=== PATIENT | female | born 1990 | race Caucasian/White ===

== ENCOUNTER 2019-04-07 08:30 | Outpatient (RCR) | payer OTHER, SELFPAY ==
--- NOTE | 2019-03-29 13:53 | PTOPEVAL ---
INITIAL PHYSICAL THERAPY EVALUATION and PLAN OF CARE Thank you for referring Pooja to [facility]. She will be seen in PT one time to once every two weeks x 6 weeks. Please review, sign, date and return this plan of care PASCUAL. I agree with and certify that the following plan of care is medically necessary. Referring Physician Date Admitting Provider: Attending Provider: Lazaro Recinos MD Referring Provider: *PT Outpatient Evaluation Start: 03/29/19 12:42 Freq: Status: Active Protocol: Document 03/29/19 12:40 CALDERON (Rec: 03/29/19 13:53 CALDERON [email or web address]) Therapy Assessment Status Assessment Status Assessment Status Evaluation Outpatient Past Medical History Neurological History Hx Neurological Disorders No Significant History Cardiovascular History Hx Cardiac Disorders No Significant History Respiratory History Hx Respiratory Disorders No Significant History Gastrointestinal History Hx Gastrointestinal Disorders No Significant History Genitourinary History Hx Genitourinary Disorders No Significant History Musculoskeletal History Hx Other Musculoskeletal Disorders Yes: some recent L sided cervical soreness,back soreness from epidurals,L SIJ dy Endocrine History Hx Endocrine Disorders No Significant History Reproductive History Hx Other Reproductive Disorders Yes: 2 C Sections Evaluation Information Problem Diagnosis Separation of muscle ( nontraumatic) Onset 2015 Subjective Information 1st baby - Jan 12, 2016 - C Query Text:As Reported By Patient/ section - due to baby's Family decrease heart rate - 8# 2oz 2nd baby - planned C section 11/10/2018 - 6# 11oz - Pooja went into labor - C section later that day Feels overall weakness in trunk, back doesn't feel as strong, increase difficulty with prolonged carrying of children - currently son weighs 27# and daughter 16# Some residual back pain from epidural sites Wants to go back to strengthening ex/ working out - afraid to do so without being looked at, wanting further imput in regards to initial stages of strengthening Prior Level of Function Activity Level (Last 3 Months) Occupation
--- NOTE | 2019-04-15 08:09 | PCPTNOTE ---
PHYSICAL THERAPY DISCHARGE NOTE Admitting Provider: Attending Provider: Lazaro Recinos MD Patient:Rosy Arboleda Date of :1990 I spoke with Pooja 04/14/2019, she was still having occasionally L SIJ dicomfort but was doing well with core/abdominal strengthening exercises. I reviewed with her how to correct her SIJ dysfunction with muscle corrective techniques which she is familiar with. In addition, we reviewed how she is to progress her core strengthening exercises. 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 She is ready for discharge from PT to [facility]. The goals have been achieved. Thank you for referring Pooja to [facility]. Please review, sign, date and return this discharge summary PASCUAL. I have been updated about Pooja's current status and I agree with discharge from the above service at this time. Referring Physician Date
== END 2019-04-19 08:27 | disposition home or self-care (01) ==
LOC: ANHPT 08:30
PROVIDERS: PCP Family Medicine; Visit Provider Obstetrics & Gynecology
DX: M62.08 Separation of muscle (nontraumatic), other site (principal)
CPT/HCPCS: 97140; 97161

== ENCOUNTER 2019-07-29 17:35 | Outpatient (CLI) | payer OTHER, SELFPAY ==
--- NOTE | ~2019-07-29 | XR_ITS ---
EXAMINATION: XR foot LT min 3V DATE: 07/29/2019 17:51 INDICATION: Left great toe pain. TECHNIQUE: 4 views of left foot were obtained. COMPARISON: None. FINDINGS: Bone alignment is normal. No fracture. Joint spaces are well maintained. IMPRESSION: 1. Normal left foot. Reviewed, dictated and finalized at location A. IMPRESSION: 1. Normal left foot.
== END 2019-07-29 17:36 | disposition home or self-care (01) ==
LOC: ANHIMG 17:37
PROVIDERS: PCP Family Medicine; Visit Provider Family Medicine
DX: M79.675 Pain in left toe(s) (principal)
CPT/HCPCS: 73630

== ENCOUNTER 2020-05-28 09:49 | Outpatient (CLI) | payer BC, SELFPAY ==
--- NOTE | ~2020-05-28 | XR_ITS ---
EXAMINATION:XR_[id number] DATE: 05/28/2020 10:07 INDICATION: Neck pain TECHNIQUE: AP, lateral, and odontoid views of the cervical spine are provided. COMPARISON: None FINDINGS: Alignment is normal. The odontoid is intact. No fracture is identified. Vertebral body heig hts and disk spaces are normal. Prevertebral soft tissues are normal. IMPRESSION: 1. No acute osseous abnormality. Reviewed, dictated and finalized at location B.
== END 2020-05-28 09:50 | disposition home or self-care (01) ==
PROVIDERS: PCP Internal Medicine; Visit Provider Nurse Practitioner
DX: M54.2 Cervicalgia (principal)
CPT/HCPCS: 72040

== ENCOUNTER 2020-07-12 08:00 | Outpatient (RCR) | payer BC, SELFPAY ==
--- NOTE | 2020-06-21 16:58 | PTOPEVAL ---
INITIAL PHYSICAL THERAPY EVALUATION and PLAN OF CARE Thank you for referring Rosy Arboleda to [facility].? Pooja is scheduled to be seen for physical therapy? 1-2x/week for up to 6 weeks. Please review, sign, date and return this plan of care PASCUAL. I agree with and certify that the following plan of care is medically necessary. Referring Physician Date Admitting Provider: Attending Provider: Fortino Salazar APRN Referring Provider: MOMO Outpatient Evaluation Start: 06/21/20 12:39 Freq: Status: Active Protocol: Document 06/21/20 12:35 CALDERON (Rec: 06/21/20 14:02 CALDERON [email or web address]) Therapy Assessment Status Assessment Status Assessment Status Evaluation Outpatient Past Medical History Past Medical History Source of Past Medical History Recalled from Previous Visit, Confirmed with Patient/Family Neurological History Hx Neurological Disorders No Significant History Cardiovascular History Hx Cardiac Disorders No Significant History Respiratory History Hx Respiratory Disorders No Significant History Gastrointestinal History Hx Gastrointestinal Disorders No Significant History Genitourinary History Hx Genitourinary Disorders No Significant History Musculoskeletal History Hx Other Musculoskeletal Disorders Yes: some recent L sided cervical soreness,back soreness from epidurals,L SIJ dy Endocrine History Hx Endocrine Disorders No Significant History Reproductive History Hx Other Reproductive Disorders Yes: 2 C Sections Evaluation Information Problem Diagnosis cervicalgia Onset first episode 2015-went away, came back a little 2019, returned few months ag Additional Evaluation Detail first 2 episodes corresponded to of children Subjective Information Pooja noticed few months ago Query Text:As Reported By Patient/ began to have some neck pain - Family centrally into bilat trapezius - occasional into shoulders - had L hand weakness - more 4th,5th fingers. Neck pain went away - but L hand weakness still present. Notices most with snapping cloth diapers, fine motor activities with L UE. L UE is arm that she carries children - mainly daughter - 25 lbs. Still playing volleyball - no problems with that. Will not
--- NOTE | 2020-10-09 08:25 | PCPTNOTE ---
PHYSICAL THERAPY DISCHARGE SUMMARY Admitting Provider: Attending Provider: Fortino Salazar APRN Patient:Rosy Arboleda Date of :1990 Pooja has not returned for any further treatments since 07/12/2020, therefore she will be discharged at this time. Pooja?s initial visit was on 06/21/2020 12:30 and she had a total of 2 visits. Follow up phone calls were made 07/19/20 and 08/07/20 - Pooja was still doing well. The goals have been met. Thank you for referring Pooja to [facility]. Please review, sign, date and return this discharge summary PASCUAL. I have been updated about Pooja's current status and I agree with discharge from the above service at this time. Referring Physician Date
== END 2020-09-19 23:59 | disposition home or self-care (01) ==
LOC: ANHPT 08:00
PROVIDERS: PCP Internal Medicine; Visit Provider Nurse Practitioner
DX: M54.2 Cervicalgia (principal); R20.0 Anesthesia of skin
CPT/HCPCS: 97110; 97140; 97161; 97162

== ENCOUNTER 2022-05-19 09:00 | Emergency (ER) | payer OTHER, SELFPAY ==
--- NOTE | ~2022-05-19 | US_ITS ---
EXAMINATION: US OB <=14 wk fetus w TV DATE: 05/19/2022 13:48 INDICATION: Vaginal bleeding during first trimester TECHNIQUE: Real-time pelvic transabdominal and transvaginal ultrasound was performed. COMPARISON: None. FINDINGS: The uterus measures 9.2 x 4.8 x 4.1 cm. A 3 mm fluid collection is present in the endometri al canal. There is a probable 4 mm nabothian cyst of the cervix. The right ovary measures 3.9 x 3.1 x 2.8 cm. There is a 2.9 cm cystic area of the right ovary with peripheral vascularity, likely a corpu s luteum. The left ovary measures 3.5 x 2.5 x 2.2 cm. There is normal vascular flow in the ovaries. T here is no free fluid in the pelvis. IMPRESSION: 1. of unknown location. Although no intrauterine gestational sac is seen, this may be due t o early gestation. If the patient is clinically stable, recommend followup with serial beta-hCG and u ltrasound. Reviewed, dictated and finalized at location B. IMPRESSION: 1. of unknown location. Although no intrauterine gestational sac is s een, this may be due to early gestation. If the patient is clinically stable, r ecommend followup with serial beta-hCG and ultrasound.
[2022-05-19 09:31] LABS: Basophils Percent Auto 0.3 % (0.2-1.2); Eosinophils Percent Auto 0.2 % (0-4.4); Hematocrit 42.8 % (37.0-47.0); Hemoglobin 14.5 g/dL (12.0-15.0); Immature Granulocyte Absolute 0.03 K/mm3 (0.00-0.031); Immature Granulocyte Percent A 0.3 % (0-0.5); Immature Platelet Fraction Pct 7.8 % (0.9-11.2); Lymphocytes Absolute Auto 1.14 K/mm3 (0.9-3.2); Lymphocytes Percent Auto 12.2 % (18.3-44.2); Mean Corpuscular HGB Conc 33.9 g/dl (32-36); Mean Corpuscular Hemoglobin 29.2 pg (26-34); Mean Corpuscular Volume 86.1 fl (80-100); Mean Platelet Volume 11.3 fl (7.4-10.4); Monocytes Absolute Auto 0.5 K/mm3 (0.1-0.6); Neutrophils Absolute Auto 7.7 K/mm3 (1.3-6.7); Platelet Count Result 204 k/mm3 (150-375); Red Blood Count 4.97 M/mm3 (4.2-5.4); Red Cell Distribution Width 12.1 % (11.5-14.5); White Blood Count 9.3 K/mm3 (4.5-10.0)
[2022-05-19 09:40] VITALS: BP 119/82; PULSE 101; RESP 18; TEMP 36.8; O2SAT 99
[2022-05-19 11:28] VITALS: BP 113/90; PULSE 109; RESP 18; O2SAT 100
[2022-05-19] MEDS: RHO(D) IMMUNE GLOBULIN 300 MCG/2 ML SYRINGE IM (12:29)
[2022-05-19 12:31] VITALS: BP 111/93; PULSE 95; RESP 18; TEMP 37.1; O2SAT 100
--- NOTE | 2022-05-19 13:07 | ED.PREGNANCY ---
HPI - General Chief complaint: Vaginal Bleeding Stated complaint: vaginal bleeding, 6 weeks Time Seen by Provider: 05/19/22 11:20 Source: patient, RN notes reviewed and old records reviewed Mode of arrival: ambulatory Limitations: no limitations History of Present Illness HPI Narrative: This is a 31 year old female approximately 6 week GA who presents for evaluation of vaginal bleeding. She developed brown discharge on Thursday but she reports it was only when she wipes. This morning she has noticed worsening bleeding. She is passing small clots. She only reports minimal cramping. She denies nausea, vomiting, or dizziness. She called her OBGYN Dr. Recinos who recommended that patient come to ER. She is scheduled for her first US later this week. She also reports that she is Onegative Related Data Home Medications Medication Instructions Recorded Confirmed elderberry fruit 200 mg capsule mg PO 01/31/21 03/18/22 Allergies Allergy/AdvReac Type Severity Reaction Status Date / Time No Known Allergies Allergy Verified 05/19/22 11:31 Review of Systems Review of Systems: All systems reviewed & are unremarkable except as noted in HPI and below Constitutional: Constitutional: Denies weakness Cardiovascular: Cardiovascular: Denies syncope, Denies rapid heart rate, Denies irregular heart rhythm, Denies leg edema and Denies dyspnea Respiratory: Respiratory: Denies chest congestion, Denies hemoptysis, Denies excessive phlegm production and Denies dyspnea Gastrointestinal: Gastrointestinal: Denies abdominal pain, Denies hematochezia, Denies diarrhea and Denies vomiting Genitourinary: Genitourinary: Reports abnormal vaginal bleeding, Denies hematuria and Denies dysuria Musculoskeletal: Musculoskeletal: Denies joint swelling, Denies loss of height and Denies muscle weakness Neurologic: Denies syncope, Denies focal weakness and Denies weakness PMFSH Past Medical History Medical History Anxiety Contact dermatitis History of COVID-19 Recent surgical procedure on lower extremity varicose vein surgery Surgical History Surgical History deliv NOS-unsp x2 Family History Family History Grandparent Family history of hypercholesterolemia Hypertension Family history of malignant neoplasm of breast in first degree relative Grandparent Hypertension Grandparent Heart problem Social History Social History Smoking status: Never smoker Second hand tobacco smoke exposure: No Alcohol intake: current Alcohol use details: Social Substance use: never Substance use type: does not use Lack of Transportation: No Lack of Food: Never True Current Housing: I Have Housing Concerned About Future Housing: No Difficulty Paying Gas/Electric Bills: No Difficulty Paying for Meds: No Currently Unemployed: No Education: Associate Degree Difficulty w/ Childcare or Family Care: No Living arrangements: with family Occupation/Education: occupation Additional occupation/education comments: 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 Gender identity (if verbalized by the patient): Female Sexual Orientation (if Verbalized by the Patient): Straight or Heterosexual Exam Const: General: no acute distress and alert Nutritional Appearance: well nourished Orientation/consciousness: patient oriented x3 HENMT: Head: normal to inspection Eyes: EOM: EOMs intact bilaterally Resp: Effort & Inspection: normal respiratory effort Auscultation: clear to auscultation bilaterally Cardio: Rate: regular rate Rhythm: regular rhythm Heart sounds: no murmurs GI: GI Palp: Yes Soft to palpation, No Tenderness to palpation present (GI), No Guarding due to palpation prese
[2022-05-19 15:37] VITALS: RESP 18
== END 2022-05-19 15:37 | disposition home or self-care (01) ==
PROVIDERS: Emergency Provider General Practice; PCP Internal Medicine
DX: O20.9 Hemorrhage in early pregnancy, unspecified (principal); Z86.16 Personal history of COVID-19; Z3A.01 Less than 8 weeks gestation of pregnancy
CPT/HCPCS: 36415; 76801; 76817; 84702; 85025; 85055; 85461; 86850; 86900; 86901; 90384; 96372; 99284; J2790

== ENCOUNTER 2022-05-21 07:09 | Outpatient (CLI) | payer OTHER, SELFPAY | END 2022-05-21 07:10 | disposition home or self-care (01) | PROVIDERS: PCP Internal Medicine; Visit Provider General Practice | DX: O20.9 Hemorrhage in early pregnancy, unspecified (principal); Z3A.00 Weeks of gestation of pregnancy not specified | CPT/HCPCS: 36415; 84702 ==

== ENCOUNTER 2022-05-23 07:20 | Outpatient (CLI) | payer OTHER, SELFPAY ==
[2022-05-23 08:08] LABS: Beta HCG Quantitative 145.44 mIU/ML
== END 2022-05-23 07:21 | disposition home or self-care (01) ==
LOC: ANHLAB 07:21
PROVIDERS: PCP Internal Medicine; Visit Provider Obstetrics & Gynecology
DX: O03.9 Complete or unspecified spontaneous abortion without complication (principal); Z3A.00 Weeks of gestation of pregnancy not specified
CPT/HCPCS: 36415; 84702

== ENCOUNTER 2022-06-09 08:49 | Outpatient (CLI) | payer OTHER, SELFPAY ==
[2022-06-09 10:01] LABS: Beta HCG Quantitative < 2.39 mIU/ML
== END 2022-06-09 08:50 | disposition home or self-care (01) ==
LOC: ANHLAB 08:50
PROVIDERS: PCP Family Medicine; Visit Provider Obstetrics & Gynecology
DX: O03.9 Complete or unspecified spontaneous abortion without complication (principal); Z3A.00 Weeks of gestation of pregnancy not specified
CPT/HCPCS: 36415; 84702

== ENCOUNTER 2022-08-11 15:03 | Outpatient (CLI) | payer OTHER, SELFPAY ==
[2022-08-16 06:04] LABS: Progesterone 18.8 ng/mL (***)
== END 2022-08-11 15:04 | disposition home or self-care (01) ==
LOC: ANHLAB 15:05
PROVIDERS: PCP Family Medicine; Visit Provider Obstetrics & Gynecology
DX: O09.299 Supervision of pregnancy with other poor reproductive or obstetric history, unspecified trimester (principal); Z3A.00 Weeks of gestation of pregnancy not specified
CPT/HCPCS: 36415; 84144; 84702

== ENCOUNTER 2022-08-13 07:46 | Outpatient (CLI) | payer OTHER, SELFPAY | END 2022-08-13 07:47 | disposition home or self-care (01) | PROVIDERS: PCP Family Medicine; Visit Provider Obstetrics & Gynecology | DX: O09.299 Supervision of pregnancy with other poor reproductive or obstetric history, unspecified trimester (principal); Z3A.00 Weeks of gestation of pregnancy not specified | CPT/HCPCS: 36415; 84702 ==

== ENCOUNTER 2022-08-21 14:39 | Outpatient (CLI) | payer OTHER, SELFPAY ==
--- NOTE | ~2022-08-21 | US_ITS ---
Pelvic ultrasound. Clinical History: First trimester , inconclusive viability Technique: Realtime transabdominal and transvaginal scanning of the pelvis was performed. Color flow Doppler and Doppler spectral analysis were performed. Findings: The uterus is anteverted, and contains an intrauterine gestation. Average sac diameter of 1 .3 cm corresponds to an estimated gestational age of 6 weeks 1 day. Yolk sac is present. No clearly d elineated pole identified. The right ovary measures 2.4 x 2.7 x 1.9 cm. No significant right ovarian or adnexal mass is seen. The left ovary measures 4.0 x 2.7 x 3.6 cm. No significant left ovarian or adnexal mass is seen. There is no evidence of free fluid in the cul de sac. Impression: Intrauterine gestational sac with estimated gestational age of 6 weeks 1 day by average sac diameter. Yolk sac present without visible pole. Findings could reflect blighted ovum versus early umer l . Correlate clinically. Continued follow-up with serial beta hCG, and repeat ultrasound as warranted, is advised. Reviewed, dictated and finalized at location M. Impression: Intrauterine gestational sac with estimated gestational age of 6 weeks 1 day by average sac diameter. Yolk sac present without visible pole. Findings co uld reflect blighted ovum versus early normal . Correlate clinically. Continued follow-up with serial beta hCG, and repeat ultrasound as warranted, i s advised.
== END 2022-08-21 14:40 | disposition home or self-care (01) ==
PROVIDERS: PCP Family Medicine; Visit Provider Obstetrics & Gynecology
DX: O36.80X0 Pregnancy with inconclusive fetal viability, not applicable or unspecified (principal); Z3A.00 Weeks of gestation of pregnancy not specified
CPT/HCPCS: 76801; 76817

== ENCOUNTER 2022-08-26 09:34 | Outpatient (CLI) | payer OTHER, SELFPAY | END 2022-08-26 09:35 | disposition home or self-care (01) | PROVIDERS: PCP Family Medicine; Visit Provider Obstetrics & Gynecology | DX: O09.299 Supervision of pregnancy with other poor reproductive or obstetric history, unspecified trimester (principal); Z3A.00 Weeks of gestation of pregnancy not specified | CPT/HCPCS: 36415; 84702 ==

== ENCOUNTER 2022-08-29 15:07 | Outpatient (CLI) | payer OTHER, SELFPAY ==
--- NOTE | ~2022-08-29 | US_ITS ---
EXAMINATION: US OB <= 14 weeks fetus DATE: 08/29/2022 15:55 INDICATION: Abnormal ultrasound finding on ultrasound. TECHNIQUE: Real-time transabdominal and transvaginal pelvic ultrasound was performed. COMPARISON: Ultrasound 08/21/2022 FINDINGS: TRANSABDOMINAL ULTRASOUND: The uterus measures 8.5 x 5.2 x 5.9 cm. TRANSVAGINAL ULTRASOUND: There is an intrauterine gestational sac. A yolk sac is identified. The fet al crown rump length measures 11 mm, which correlates with an estimated gestational age of 7 weeks an d 1 day(s) (+/-) 5 day(s). heart motion is identified measuring 112 beats per minute (bpm) by M -mode Doppler. The right ovary measures 1.6 x 3.0 x 1.7 cm. The left ovary measures 2.5 x 3.2 x 2.9 c m. There is no free fluid in the pelvis. IMPRESSION: 1. Single living intrauterine gestation with estimated date of delivery of 04/16/2023. Reviewed, dictated and finalized at location E. IMPRESSION: 1. Single living intrauterine gestation with estimated date of delivery of 03/20.
== END 2022-08-29 15:08 | disposition home or self-care (01) ==
PROVIDERS: PCP Family Medicine; Visit Provider Obstetrics & Gynecology
DX: O28.3 Abnormal ultrasonic finding on antenatal screening of mother (principal); Z3A.00 Weeks of gestation of pregnancy not specified
CPT/HCPCS: 76801

== ENCOUNTER 2022-09-10 12:18 | Outpatient (CLI) | payer OTHER, SELFPAY ==
--- NOTE | ~2022-09-10 | US_ITS ---
Pelvic ultrasound. Clinical History: First trimester , antepartum hemorrhage Technique: Realtime transabdominal and transvaginal scanning of the pelvis was performed. Color flow Doppler and Doppler spectral analysis were performed. Findings: The uterus is anteverted, and contains an intrauterine gestation. heart rate is 187 b pm. [place]-rump length of 1.9 cm corresponds to an estimated gestational age of 8 weeks 3 days. Possib le minimal subchronic hemorrhage. The right ovary is not visualized. No significant right ovarian or adnexal mass is seen. The left ovary measures 3.6 x 2.3 cm. No significant left ovarian or adnexal mass is seen. There is no evidence of free fluid in the cul de sac. Impression: Live intrauterine gestation with estimated gestational age of 8 weeks 3 days. heart rate is 187 bpm. Probable minimal subchorionic hemorrhage. Reviewed, dictated and finalized at [facility]. Impression: Live intrauterine gestation with estimated gestational age of 8 weeks 3 days. F etal heart rate is 187 bpm. Probable minimal subchorionic hemorrhage.
== END 2022-09-10 12:19 | disposition home or self-care (01) ==
PROVIDERS: PCP Family Medicine; Visit Provider Obstetrics & Gynecology
DX: O46.90 Antepartum hemorrhage, unspecified, unspecified trimester (principal); Z3A.08 8 weeks gestation of pregnancy
CPT/HCPCS: 36415; 76801; 85461; 86850; 86900; 86901; 90384; J2790

== ENCOUNTER 2022-09-24 09:11 | Outpatient (CLI) | payer OTHER, SELFPAY ==
--- NOTE | ~2022-09-24 | US_ITS ---
Pelvic ultrasound. Clinical History: Intraparenchymal hemorrhage, first trimester Technique: Realtime transabdominal and transvaginal scanning of the pelvis was performed. Color flow Doppler and Doppler spectral analysis were performed. Findings: The uterus is anteverted, and contains an intrauterine gestation. No cardiac activity seen. [place]-rump length of 1.9 cm corresponds to an estimated gestational age of 8 weeks 3 days.. Neither ovary seen. No adnexal mass seen. There is no evidence of free fluid in the cul de sac. Impression: Intrauterine gestation with estimated gestational age of 8 weeks 3 days, but no cardiac activity. Thi s is compatible with demise/missed . Reviewed, dictated and finalized at location M. Impression: Intrauterine gestation with estimated gestational age of 8 weeks 3 days, but no cardiac activity. This is compatible with demise/missed .
== END 2022-09-24 09:12 | disposition home or self-care (01) ==
PROVIDERS: PCP Family Medicine; Visit Provider Obstetrics & Gynecology
DX: O46.91 Antepartum hemorrhage, unspecified, first trimester (principal); Z3A.08 8 weeks gestation of pregnancy
CPT/HCPCS: 76801

== ENCOUNTER 2022-09-25 12:55 | Outpatient (CLI) | payer OTHER, SELFPAY ==
[2022-09-25 13:33] LABS: Hemoglobin A1C 4.7 % (<5.7)
[2022-09-25 13:41] LABS: Alanine Aminotransferase 18 U/L (6-35); Albumin Level 4.8 g/dL (3.5-5.1); Alkaline Phosphatase 57 U/L (38-126); Anion Gap 9 mmol/L (8-16); Aspartate Amino Transferase 24 U/L (14-36); Bilirubin,Total 0.6 mg/dL (0.2-1.3); Blood Urea Nitrogen 10 mg/dL (7-17); Calcium 9.4 mg/dL (8.4-10.2); Carbon Dioxide 27 mmol/L (22-30); Chloride 103 mmol/L (98-107); Estimated Glomerular Filt Rate > 60; Glucose 105 mg/dL (65-110); Potassium 3.9 mmol/L (3.4-5.0); Sodium 139 mmol/L (137-145)
[2022-10-01 15:16] LABS: Anti Cardio Antibody IgM <2.0 MPL-U/mL (<20.0); Anti Cardiolipin Antibody IgA <2.0 APL-U/mL (<20.0); Anti Cardiolipin Antibody IgG <2.0 GPL-U/mL (<20.0)
== END 2022-09-25 12:56 | disposition home or self-care (01) ==
LOC: ANHLAB 12:56
PROVIDERS: PCP Family Medicine; Visit Provider Obstetrics & Gynecology
DX: N96 Recurrent pregnancy loss (principal)
CPT/HCPCS: 36415; 80053; 83036; 84443; 86038; 86147; 86850; 86880; 86900; 86901; 86902

== ENCOUNTER 2022-09-26 15:07 | Emergency (ER) | payer OTHER, SELFPAY ==
--- NOTE | ~2022-09-26 | US_ITS ---
EXAMINATION: US OB <=14 wk fetus w TV INDICATION: bleeding, demise 8 weeks TECHNIQUE: Sonography of the pelvis was performed by transabdominal and transvaginal techniques. COMPARISON: None. RESULT: Uterus: 11.9 x 5.4 x 5.5 cm. Anteverted and retroflexed. Homogenous myometrium. Septate uterus. Endo metrial stripe measures 18 mm. 1.4 cm hyperechoic material at the cervix, without flow. 4 mm [place] in the endometrial tissues at the uterine fundus, possible calcification or focus of hemorrhage. Intrauterine gestational sac: Not seen. Right ovary: 2.2 x 1.2 x 2.3 cm. Vascular flow is present. No adnexal mass. Left ovary: 3.0 x 2.4 x 2.3 cm. Vascular flow is present. No adnexal mass. 1.8 cm simple cyst. Pelvis free fluid: None. IMPRESSION: No intrauterine gestational sac or pole. Hyperechoic material in the endocervical canal may represent clot, retained products, or polypoid mat erial. Recommend short-term sonographic follow-up to ensure resolution. Septate uterus. Reviewed, dictated and finalized at location K. IMPRESSION: No intrauterine gestational sac or pole. Hyperechoic material in the endocervical canal may represent clot, retained pro ducts, or polypoid material. Recommend short-term sonographic follow-up to ensu re resolution. Septate uterus.
[2022-09-26 15:15] VITALS: BP 116/81; PULSE 93; RESP 20; TEMP 36.6; O2SAT 100
[2022-09-26 15:37] LABS: Basophils Percent Auto 0.3 % (0.2-1.2); Eosinophils Absolute Auto 0.1 K/mm3 (0-0.3); Eosinophils Percent Auto 0.6 % (0-4.4); Hematocrit 38.1 % (37.0-47.0); Immature Granulocyte Absolute 0.07 K/mm3 (0.00-0.031); Immature Granulocyte Percent A 0.6 % (0-0.5); Lymphocytes Absolute Auto 1.45 K/mm3 (0.9-3.2); Lymphocytes Percent Auto 11.5 % (18.3-44.2); Mean Corpuscular HGB Conc 34.1 g/dl (32-36); Mean Platelet Volume 10.5 fl (7.4-10.4); Monocytes Absolute Auto 0.5 K/mm3 (0.1-0.6); Neutrophils Absolute Auto 10.5 K/mm3 (1.3-6.7); Platelet Count Result 234 k/mm3 (150-375); Red Blood Count 4.48 M/mm3 (4.2-5.4); Red Cell Distribution Width 12.8 % (11.5-14.5); White Blood Count 12.7 K/mm3 (4.5-10.0)
[2022-09-26 16:45] VITALS: BP 111/80; PULSE 88; RESP 16; TEMP 36.7; O2SAT 100
[2022-09-26 17:01] VITALS: BP 121/78; O2SAT 100
[2022-09-26] MEDS: SODIUM CHLORIDE 0.9% IV 1,000 ML 999 ML IV CONT (17:15)
--- NOTE | 2022-09-26 17:28 | ED.PREGNANCY ---
HPI - General Chief complaint: Vaginal Bleeding Stated complaint: VAGINAL BLEEDING, miscarry Time Seen by Provider: 09/26/22 17:05 Source: patient Mode of arrival: ambulatory Limitations: no limitations History of Present Illness HPI Narrative: A 31-year-old , about 11 weeks that presents to the emergency department for vaginal bleeding. Reports she has been having spotting the last couple of weeks. Earlier this week the bleeding became more heavy. She had an ultrasound 2 days ago which showed demise. She started to have very heavy bleeding yesterday. She thinks she passed the tissue this morning. She has continued today to have heavy bleeding and large blood clots which prompted her to be seen tonight. She did get Rhogam. Her OB is Dr. Rceinos. Denies fever or vomiting. Related Data Allergies Allergy/AdvReac Type Severity Reaction Status Date / Time No Known Allergies Allergy Verified 09/26/22 15:15 Review of Systems Review of Systems: CONSTITUTIONAL: Denies fever GASTROINTESTINAL: Ports pelvic cramping. Denies nausea, vomiting All systems reviewed & are unremarkable except as noted in HPI and below PMFSH Past Medical History Medical History Anxiety Contact dermatitis History of COVID-19 Recent surgical procedure on lower extremity varicose vein surgery Spontaneous miscarriage 05/2022 Surgical History Surgical History deliv NOS-unsp x2 Family History Family History Grandparent Family history of hypercholesterolemia Hypertension Family history of malignant neoplasm of breast in first degree relative Grandparent Hypertension Grandparent Heart problem Social History Social History Smoking status: Never smoker Second hand tobacco smoke exposure: No Alcohol intake: current Alcohol use details: Social Substance use: never Substance use type: does not use Lack of Transportation: No Lack of Food: Never True Current Housing: I Have Housing Concerned About Future Housing: No Difficulty Paying Gas/Electric Bills: No Difficulty Paying for Meds: No Currently Unemployed: No Education: Associate Degree Difficulty w/ Childcare or Family Care: No Living arrangements: with family Occupation/Education: occupation Additional occupation/education comments: 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 Gender identity (if verbalized by the patient): Female Sexual Orientation (if Verbalized by the Patient): Straight or Heterosexual Exam Narrative: GENERAL: Well-appearing, well-nourished, and in no acute distress. HEAD: Normocephalic, atraumatic. EYES: EOMI. CHEST: Clear to auscultation. No respiratory distress. No wheezes rales or rhonchi HEART: Regular rate and rhythm. No murmur heard. Normal peripheral pulses. ABDOMEN: Soft, nontender, nondistended, normal active bowel sounds. EXTREMITIES: Normal range of motion. No edema. SKIN: Warm, dry, no rash. NEURO: No focal deficits. Alert and oriented x3. PSYCH: Normal mood and affect PELVIC: Small amount of blood in the vaginal vault with moderate sized blood clot. Able to be cleared, cervix is open Course Course Emergency Course: Patient and family updated on workup and agree with plan of care Consultations Consultation #1: Spoke with Dr. Recinos about patient and workup who will follow up in clinic. Did recommend a dose of Misoprostol vaginally Date: 09/26/22 Vital Signs Vital signs: Vital Signs Temperature 97.9 F 09/26/22 15:15 Pulse Rate 93 09/26/22 15:15 Respiratory Rate 20 09/26/22 15:15 Blood Pressure 116/81 09/26/22 15:15 Pulse Oximetry 100 09/26/22 15:15 Oxygen Delivery Room Air 09/26/22 15:15 Temperature 98.2 F 09/26/22 18:50 Pulse
[2022-09-26 17:31] VITALS: BP 125/94; PULSE 88; RESP 13; O2SAT 100
[2022-09-26 17:46] VITALS: BP 125/83; PULSE 83; RESP 19; O2SAT 99
[2022-09-26 18:50] VITALS: BP 104/74; PULSE 72; RESP 16; TEMP 36.8; O2SAT 100
== END 2022-09-26 20:10 | disposition home or self-care (01) ==
PROVIDERS: Student in an Organized Health Care Education/Training Program; Emergency Provider Physician Assistant; PCP Family Medicine
DX: O03.9 Complete or unspecified spontaneous abortion without complication (principal)
CPT/HCPCS: 36415; 76801; 76817; 84702; 85025; 85461; 86850; 86880; 86900; 86901; 86902; 96360; 96361; 99284; J7030

== ENCOUNTER 2022-10-01 06:27 | Emergency (ER) | payer OTHER, SELFPAY ==
[2022-10-01] VITALS (25 sets, daily range): BP systolic 94–119; BP diastolic 64–93; PULSE 78–94; RESP 12–29; TEMP 36.6; O2SAT 95–100
--- NOTE | ~2022-10-01 | XR_ITS ---
EXAMINATION: XR chest 2V DATE: 10/01/2022 08:04 INDICATION: Chest pain. TECHNIQUE: Frontal and lateral views of the chest were obtained. COMPARISON: Chest single view 08/13/2011 FINDINGS: There is no pneumonia, pleural effusion, or pneumothorax. The heart size is normal. IMPRESSION: 1. No acute cardiopulmonary disease. Reviewed, dictated and finalized at location A.
--- NOTE | 2022-10-01 06:37 | ECG_ITS ---
Measurements Intervals [place] Rate: 89 P: 61 ME: 151 QRS: 49 QRSD: 93 T: 64 QT: 356 QTc: 433 Interpretive Statements SINUS RHYTHM COMPARED TO ECG 07/25/2018 09:36:26 SINUS RHYTHM NOW PRESENT Electronically Signed On 10-01-2022 15:21:59 CDT by Sylvester Burgess M.D.
[2022-10-01] MEDS: ALPRAZolam (*CRX) 0.5 MG TABLET PO (07:20)
[2022-10-01 07:38] LABS: Basophils Percent Auto 0.7 % (0.2-1.2); Eosinophils Absolute Auto 0.1 K/mm3 (0-0.3); Eosinophils Percent Auto 1.6 % (0-4.4); Hematocrit 35.6 % (37.0-47.0); Hemoglobin 12.1 g/dL (12.0-15.0); Immature Granulocyte Absolute 0.03 K/mm3 (0.00-0.031); Immature Granulocyte Percent A 0.5 % (0-0.5); Lymphocytes Absolute Auto 1.46 K/mm3 (0.9-3.2); Lymphocytes Percent Auto 26.2 % (18.3-44.2); Mean Corpuscular Volume 85.4 fl (80-100); Monocytes Absolute Auto 0.3 K/mm3 (0.1-0.6); Monocytes Percent Auto 4.8 % (2.6-8.5); Neutrophils Absolute Auto 3.7 K/mm3 (1.3-6.7); Neutrophils Percent Auto 66.2 % (45.5-73.1); Platelet Count Result 251 k/mm3 (150-375); Red Blood Count 4.17 M/mm3 (4.2-5.4); Red Cell Distribution Width 12.6 % (11.5-14.5); White Blood Count 5.6 K/mm3 (4.5-10.0)
[2022-10-01 07:47] LABS: INR 0.9; Partial Thromboplastin Time 28.3 SECONDS (22.3-36.8); Prothrombin Time 12.8 Seconds (11.1-14.7)
--- NOTE | 2022-10-01 07:49 | ED.GENADULT ---
HPI - General Adult General Chief complaint: Anxiety Stated complaint: chest tightness; panic attack? Time Seen by Provider: 10/01/22 07:01 History of Present Illness HPI narrative: Patient is a 31-year-old female who presents to the ER with chest tightness. Intermittent over the last couple days but had her worst discomfort at 2:30 AM. Patient recently had a miscarriage and has been stressed. She feels like her hearts been racing. Denies dyspnea or chest pain with deep breath. She reports grandparents who have had heart issues in her mother who has had SVT. Patient was supposed to be starting BuSpar but has not yet initiated it. No alleviating factors. She does report her bleeding is decreased but she still has some lower abdominal discomfort from the cramping. Related Data Allergies Allergy/AdvReac Type Severity Reaction Status Date / Time No Known Allergies Allergy Verified 10/01/22 06:28 Review of Systems Review of Systems: All systems reviewed & are unremarkable except as noted in HPI and below Constitutional: Constitutional: Denies chills and Denies fever(s) Cardiovascular: Cardiovascular: Reports chest pain, Denies rapid heart rate and Denies radiating jaw, neck or arm pain Respiratory: Respiratory: Denies cough and Denies dyspnea Gastrointestinal: Gastrointestinal: Denies abdominal pain, Denies nausea and Denies vomiting Psychiatric: Psychiatric: Reports anxiety and Denies depression PMFSH Past Medical History Medical History Anxiety Contact dermatitis History of COVID-19 Recent surgical procedure on lower extremity varicose vein surgery Spontaneous miscarriage 05/2022 Surgical History Surgical History deliv NOS-unsp x2 Family History Family History Grandparent Family history of hypercholesterolemia Hypertension Family history of malignant neoplasm of breast in first degree relative Grandparent Hypertension Grandparent Heart problem Social History Social History Smoking status: Never smoker Second hand tobacco smoke exposure: No Alcohol intake: current Alcohol use details: Social Substance use: never Substance use type: does not use Lack of Transportation: No Lack of Food: Never True Current Housing: I Have Housing Concerned About Future Housing: No Difficulty Paying Gas/Electric Bills: No Difficulty Paying for Meds: No Currently Unemployed: No Education: Associate Degree Difficulty w/ Childcare or Family Care: No Living arrangements: with family Occupation/Education: occupation Additional occupation/education comments: 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 Gender identity (if verbalized by the patient): Female Sexual Orientation (if Verbalized by the Patient): Straight or Heterosexual Exam Narrative: GENERAL: Well-appearing, well-nourished, and in no acute distress. HEAD: Normocephalic, atraumatic. ENT: Mucous membranes moist. CHEST: Clear to auscultation. No respiratory distress. HEART: Regular rate and rhythm. No murmur heard. Normal peripheral pulses. ABDOMEN: Soft, nontender, nondistended. EXTREMITIES: Normal range of motion. No edema. NEURO: Alert and oriented x3. PSYCH: Normal mood and affect. Course Course Emergency Course: Patient resting comfortably. Feels much improved after having some Xanax. Discussed its felt that her symptoms were related to her loss anxiety. She has been nervous to start her BuSpar but plans to start it in the next day. Patient given encouragement will be discharged home. Vital Signs Vital signs: Vital Signs Temperature 98 F 10/01/22 06:45 Pulse Rate 84 10/01/22 06:45 Respiratory Rate 16 10/01/22 06:45 Blood Pressure 94/68 L 10/01/22 06:45 Pulse Oximetry
[2022-10-01 07:54] LABS: Alanine Aminotransferase 63 U/L (6-35); Albumin Level 4.7 g/dL (3.5-5.1); Alkaline Phosphatase 57 U/L (38-126); Anion Gap 8 mmol/L (8-16); Aspartate Amino Transferase 51 U/L (14-36); Bilirubin,Total 0.5 mg/dL (0.2-1.3); Blood Urea Nitrogen 11 mg/dL (7-17); Calcium 9.3 mg/dL (8.4-10.2); Carbon Dioxide 29 mmol/L (22-30); Chloride 104 mmol/L (98-107); Estimated CRCL calculation 85 ml/min; Estimated Glomerular Filt Rate > 60; Glucose 84 mg/dL (65-110); Potassium 3.9 mmol/L (3.4-5.0); Sodium 141 mmol/L (137-145)
[2022-10-01 08:49] LABS: Troponin I < 0.012 ng/mL (0.000-0.034)
== END 2022-10-01 10:10 | disposition home or self-care (01) ==
PROVIDERS: Emergency Provider Emergency Medicine; PCP Family Medicine
DX: F41.9 Anxiety disorder, unspecified (principal); Z86.16 Personal history of COVID-19
CPT/HCPCS: 36415; 71046; 80053; 84443; 84484; 85025; 85610; 85730; 93005; 99284; A9270

== ENCOUNTER 2022-10-03 09:07 | Outpatient (CLI) | payer OTHER, SELFPAY | END 2022-10-03 09:08 | disposition home or self-care (01) | LOC: ANHLAB 09:09 | PROVIDERS: PCP Family Medicine; Visit Provider Obstetrics & Gynecology | DX: O03.9 Complete or unspecified spontaneous abortion without complication (principal); Z3A.00 Weeks of gestation of pregnancy not specified | CPT/HCPCS: 36415; 84702 ==

== ENCOUNTER 2022-10-17 08:19 | Outpatient (CLI) | payer OTHER, SELFPAY ==
[2022-10-17 10:09] LABS: Beta HCG Quantitative 58.36 mIU/ML
== END 2022-10-17 08:20 | disposition home or self-care (01) ==
LOC: ANHLAB 08:19
PROVIDERS: PCP Family Medicine; Visit Provider Obstetrics & Gynecology
DX: O03.9 Complete or unspecified spontaneous abortion without complication (principal); Z3A.00 Weeks of gestation of pregnancy not specified
CPT/HCPCS: 36415; 84702

== ENCOUNTER 2022-11-07 10:40 | Outpatient (CLI) | payer OTHER, SELFPAY ==
[2022-11-07 11:33] LABS: Beta HCG Quantitative 8.42 mIU/ML
== END 2022-11-07 10:41 | disposition home or self-care (01) ==
LOC: ANHLAB 10:42
PROVIDERS: PCP Family Medicine; Visit Provider Obstetrics & Gynecology
DX: O03.9 Complete or unspecified spontaneous abortion without complication (principal); Z3A.00 Weeks of gestation of pregnancy not specified
CPT/HCPCS: 36415; 84702

== ENCOUNTER 2022-11-28 08:47 | Outpatient (CLI) | payer OTHER, SELFPAY ==
--- NOTE | ~2022-11-28 | US_ITS ---
Pelvic ultrasound. Clinical History: Incomplete spontaneous Technique: Realtime transabdominal and transvaginal scanning of the pelvis was performed. Color flow Doppler and Doppler spectral analysis were performed. Findings: The uterus is anteverted. The endometrial stripe has a thickness of 5 mm. Small amount of fluid present at the lower uterine segment/cervical canal. The right ovary measures 3.8 x 2.4 x 2.9 cm. No significant right ovarian or adnexal mass is seen. The left ovary measures 2.9 x 2.1 x 2.9 cm. No significant left ovarian or adnexal mass is seen. There is no evidence of free fluid in the cul de sac. Impression: Small amount of fluid in the endometrial canal at the lower uterine segment in the cervical canal. No definite evidence for retained products of conception. No intrauterine gestational sac. Reviewed, dictated and finalized at [facility]. Impression: Small amount of fluid in the endometrial canal at the lower uterine segment in the cervical canal. No definite evidence for retained products of conception. N o intrauterine gestational sac.
[2022-11-28 12:49] LABS: Beta HCG Quantitative < 2.39 mIU/ML
== END 2022-11-28 08:48 | disposition home or self-care (01) ==
LOC: ANHIMG 08:48
PROVIDERS: PCP Family Medicine; Visit Provider Obstetrics & Gynecology
DX: O03.9 Complete or unspecified spontaneous abortion without complication (principal); Z3A.00 Weeks of gestation of pregnancy not specified
CPT/HCPCS: 36415; 76830; 76856; 84702

== ENCOUNTER 2023-01-13 12:33 | Outpatient (CLI) | payer OTHER, SELFPAY ==
--- NOTE | ~2023-01-13 | MMUS_ITS ---
EXAMINATION: MM diagnostic valentina RT w marion, US breast RT complete HISTORY: Right breast lump with pain at 10-11:00 TECHNIQUE: Right full-field and spot 3-D tomosynthesis images were performed and synthetic 2-D images were generated. CAD analysis was submitted and interpreted. High resolution complete right breast ul trasound examination including all 4 quadrants and subareolar area was performed. COMPARISON: None BREAST PARENCHYMAL COMPOSITION: The breasts are heterogeneously dense, which may obscure small masses . FINDINGS: MAMMOGRAPHIC FINDINGS: No suspicious mass or architectural distortion, malignant calcification, skin thickening or retractio n is detected. ULTRASOUND: No suspicious mass or shadowing, cyst or other significant sonographic abnormality of the right breas t is detected. IMPRESSION: 1. No evidence of malignancy 2. Routine annual mammographic screening beginning at age 40 is recommended unless the patient is sym ptomatic or there are physical findings earlier. BI-RADS Category 1: Negative Reviewed, dictated and finalized at location A. [facility] IMPRESSION: 1. No evidence of malignancy 2. Routine annual mammographic screening beginning at age 40 is recommended unl ess the patient is symptomatic or there are physical findings earlier. BI-RADS Category 1: Negative
== END 2023-01-13 12:34 | disposition home or self-care (01) ==
PROVIDERS: PCP Family Medicine; Visit Provider Registered Nurse
DX: N63.0 Unspecified lump in unspecified breast (principal); N64.4 Mastodynia
CPT/HCPCS: 76641; 77061; 77065; G0279

== ENCOUNTER 2023-04-20 10:23 | Outpatient (CLI) | payer OTHER, SELFPAY ==
[2023-04-20 11:44] LABS: Beta HCG Quantitative 200.79 mIU/ML
== END 2023-04-20 10:24 | disposition home or self-care (01) ==
LOC: ANHLAB 10:24
PROVIDERS: PCP Family Medicine; Visit Provider Obstetrics & Gynecology
DX: O09.299 Supervision of pregnancy with other poor reproductive or obstetric history, unspecified trimester (principal); Z3A.00 Weeks of gestation of pregnancy not specified
CPT/HCPCS: 36415; 84144; 84702

== ENCOUNTER 2023-04-22 10:03 | Outpatient (CLI) | payer OTHER, SELFPAY | END 2023-04-22 10:04 | disposition home or self-care (01) | LOC: ANHLAB 10:05 | PROVIDERS: PCP Family Medicine; Visit Provider Obstetrics & Gynecology | DX: O09.299 Supervision of pregnancy with other poor reproductive or obstetric history, unspecified trimester (principal); Z3A.00 Weeks of gestation of pregnancy not specified | CPT/HCPCS: 36415; 84702 ==

== ENCOUNTER 2023-05-18 09:41 | Outpatient (CLI) | payer OTHER, SELFPAY ==
--- NOTE | ~2023-05-18 | US_ITS ---
Pelvic ultrasound. Clinical History: First trimester , establish dates and viability Technique: Realtime transabdominal and transvaginal scanning of the pelvis was performed. Color flow Doppler and Doppler spectral analysis were performed. Findings: The uterus is anteverted, and contains an intrauterine gestational sac. Hideout-rump length o f 1.9 cm corresponds to an estimated gestational age of 8 weeks 2 days. heart rate is 171 bpm. There is associated sac. There is a second yolk sac with possible smaller, more rudimentary appearing pole with no cardiac activity seen, within the second gestational sac. The right ovary measures 3.7 x 2.8 x 2.8 cm. Right ovarian corpus luteal cyst present. The left ovary measures 2.9 x 1.5 x 1.7 cm. No significant left ovarian or adnexal mass is seen. There is no evidence of free fluid in the cul de sac. Impression: Findings suggestive of monochorionic, monoamniotic twin intrauterine gestation, with one live p ole with estimated gestational age of 8 weeks 2 days, and heart rate of 171 bpm. Second yolk sa c is associated with a smaller, more rudimentary appearing, pole, with no cardiac activity seen , suggestive of demise of the second pole. Reviewed, dictated and finalized at location M. Impression: Findings suggestive of monochorionic, monoamniotic twin intrauterine gestation, with one live pole with estimated gestational age of 8 weeks 2 days, and heart rate of 171 bpm. Second yolk sac is associated with a smaller, mor e rudimentary appearing, pole, with no cardiac activity seen, suggestive of demise of the second pole.
== END 2023-05-18 09:42 | disposition home or self-care (01) ==
PROVIDERS: PCP Family Medicine; Visit Provider Obstetrics & Gynecology
DX: O36.80X0 Pregnancy with inconclusive fetal viability, not applicable or unspecified (principal); Z3A.08 8 weeks gestation of pregnancy
CPT/HCPCS: 76801; 76817

== ENCOUNTER 2023-05-19 10:00 | Outpatient (CLI) | payer OTHER, SELFPAY ==
--- NOTE | 2023-05-21 16:29 | WPDHOLTEREM ---
Holter/Event Monitor Holter/Event Monitor Date of procedure: 05/19/23 Holter/Event Procedure: 24 Hr Holter Monitor Indications: Tachycardia Conclusion: 1. 24 hour holter monitor on 05/19/23. 2. Underlying rhythm is sinus rhythm. HR range 59-146 bpm; average HR 88 bpm. HR at 146 bpm was at 08:04. 3. There are 8 premature supraventricular complexes and 2 supraventricular couplets. No supraventricular tachycardia. 4. There are 5 premature ventricular complexes. No ventricular tachycardia. 5. No sinoatrial or atrioventricular blocks. No significant pauses greater than 2 seconds. 6. Patient reports symptoms of heart racing, shortness of breath which demonstrate sinus rhythm, HR range 91-121 bpm.
== END 2023-05-19 10:01 | disposition home or self-care (01) ==
LOC: ANHCARD 10:01
PROVIDERS: PCP Family Medicine; Visit Provider Obstetrics & Gynecology
DX: O99.419 Diseases of the circulatory system complicating pregnancy, unspecified trimester (principal); I47.10 Supraventricular tachycardia, unspecified; Z3A.00 Weeks of gestation of pregnancy not specified
CPT/HCPCS: 93225; 93226

== ENCOUNTER 2023-05-28 15:06 | Outpatient (CLI) | payer OTHER, SELFPAY ==
--- NOTE | ~2023-05-28 | US_ITS ---
EXAMINATION: US OB <=14 wk fetus w TV DATE: 05/28/2023 16:11 INDICATION: Vaginal spotting TECHNIQUE: Real-time transabdominal and transvaginal obstetric ultrasound. FINDINGS: Ultrasound dated 05/18/2023 The uterus measures 12.5 x 7 x 8.6 cm. There is an intrauterine gestational sac containing to young s ex and poles. Only one pole demonstrates heart motion. heart rate is 187 BPM. 2 yolk sacs are identified. The ovaries are within normal limits. Tyler-rump length measures 2.47 cm . IMPRESSION: 1. Intrauterine gestational sac containing 2 separate poles and yolk sacs, although no he art motions are detected in one of the poles, consistent with demise. There is a single living intrauterine with heart motions measuring 187 BPM. Estimated gestational age is 9 weeks 3 d ays by initial ultrasound ([facility] 12/28/2023. Reviewed, dictated and finalized at location A. IMPRESSION: 1. Intrauterine gestational sac containing 2 separate poles and yolk sacs , although no heart motions are detected in one of the poles, consi stent with demise. There is a single living intrauterine with heart m otions measuring 187 BPM. Estimated gestational age is 9 weeks 3 days by initia l ultrasound (NOEL 12/28/2023.
== END 2023-05-28 15:07 | disposition home or self-care (01) ==
LOC: ANHIMG 15:06
PROVIDERS: PCP Family Medicine; Visit Provider Obstetrics & Gynecology
DX: O26.859 Spotting complicating pregnancy, unspecified trimester (principal); Z3A.00 Weeks of gestation of pregnancy not specified
CPT/HCPCS: 76801; 76817

== ENCOUNTER 2023-05-29 08:37 | Outpatient (RCR) | payer OTHER, SELFPAY ==
[2023-05-29 08:59] LABS: Hematocrit 41.3 % (37.0-47.0); Mean Corpuscular HGB Conc 33.9 g/dl (32-36); Mean Corpuscular Volume 85.7 fl (80-100); Mean Platelet Volume 10.5 fl (7.4-10.4); Platelet Count Result 218 k/mm3 (150-375); Red Blood Count 4.82 M/mm3 (4.2-5.4); Red Cell Distribution Width 12.7 % (11.5-14.5); White Blood Count 8.7 K/mm3 (4.5-10.0)
[2023-05-29 09:02] LABS: Appearance Urine Clear (Clear); Bilirubin Urine Negative (Negative); Blood Urine Negative (Negative); Color Urine Yellow (Yellow); Glucose Urine UA Negative (Negative); Ketones Urine Trace mg/dL (Negative); Leukocyte Esterase Ur Negative LEU/UL (Negative); Nitrate Urine Negative (Negative); Protein Urine Negative (Negative); Specific Grav Ur 1.025 (1.001-1.035)
[2023-05-29 09:21] LABS: Add Urine Microscopic? NO
[2023-05-29 10:12] LABS: Hepatitis B Surface Antigen Negative (Negative); Rubella IgG Antibody 12.6 IU/ML
[2023-05-29 10:27] LABS: HIV 1/2 Ab P24 Ag Result Negative (Negative)
[2023-05-29 10:28] LABS: Hepatitis C Virus Antibody Negative (Negative)
[2023-05-29 12:24] LABS: Rapid Plasma Reagin Non-Reactive (NonReactive)
[2023-05-30] MEDS: RHO(D) IMMUNE GLOBULIN 300 MCG/2 ML SYRINGE IM (10:12)
[2023-06-01 09:58] LABS: Varicella IgG Antibody <135.00 index
[2023-06-01 10:53] LABS: Hematocrit 42.8 % (35.0-45.0); MCH 29.3 pg (27.0-33.0); MCV 89.5 fL (80.0-100.0); Red Blood Cell Count 4.78 Million/uL (3.80-5.10)
== END 2023-08-27 23:59 | disposition home or self-care (01) ==
LOC: ANHLAB 08:37
PROVIDERS: PCP Family Medicine; Visit Provider Obstetrics & Gynecology
DX: Z11.4 Encounter for screening for human immunodeficiency virus [HIV] (principal); Z29.13 Encounter for prophylactic Rho(D) immune globulin; O36.0190 Maternal care for anti-D [Rh] antibodies, unspecified trimester, not applicable or unspecified; O26.851 Spotting complicating pregnancy, first trimester; Z3A.00 Weeks of gestation of pregnancy not specified
CPT/HCPCS: 36415; 81003; 83021; 84443; 85027; 85461; 86592; 86703; 86762; 86787; 86803; 86850; 86900; 86901; 87086; 87340; 90384; 96372; G0432; J2790

== ENCOUNTER 2023-08-17 08:32 | Observation (INO) | payer OTHER, SELFPAY ==
--- NOTE | ~2023-08-17 | US_ITS ---
EXAMINATION: US OB limited DATE: 08/17/2023 10:34 INDICATION: Fall. Second trimester. TECHNIQUE: Real-time ultrasound of the pelvis was performed. COMPARISON: Ultrasound 05/28/2023 FINDINGS: There is a single fetus in vertex presentation. The placenta is anterior. heart rate is 153 be ats per minute (bpm). The amniotic fluid volume is subjectively normal. The cervical length is 4.1 cm on transabdominal images, which is normal. IMPRESSION: 1. Single living fetus in vertex presentation. 2. Normal placenta. Reviewed, dictated and finalized at location A.
[2023-08-17 09:00] VITALS: BP 111/73; PULSE 92
--- NOTE | 2023-08-17 09:02 | PC.NURSE ---
0850: RN doppled FHT at bedside, heart tones were 180's.
--- NOTE | 2023-08-17 09:14 | OBADM ---
This patient, Rosy Arboleda, admitted to the OB room OB Post 116 for observation. Patient/family oriented to hospital policies and general routines including ID bracelet, bed and alarms, visiting hours, pain management, procedures, bathroom and other care routines, personal items, smoking policy, room service/diet, and visiting hours. Patient/Family are encouraged to report perceived risks to care and to ask questions if they do not understand what they are told or what they should do.
[2023-08-17 09:15] VITALS: BP 112/75; PULSE 94
[2023-08-17 09:30] VITALS: BP 113/75; PULSE 88
--- NOTE | 2023-08-17 09:47 | PC.NURSE ---
0940: RN phoned Dr. Recinos to inform her of patient's complaint of a fall last night around 6 pm. OB aware that patient fell on all 4, and is not bleeding or spotting. RN informed OB that no contractions could be palpated and no contractions were noted on toco. OB aware that patient complains of lower abdomen cramping that may be GI Related. OB aware RN was able to doppel heart tones in the 180's. Orders to get an ultrasound for a placenta check and post fall eval, along with an antibody screen and a KB test.
--- NOTE | 2023-08-17 11:14 | PC.NURSE ---
1114: Dr. Recinos phoned in for update. RN reported negative KB results, pending antibody screening, ultrasound results, and no uterine irritability or contractions noted. Orders to discharge patient home with instructions on when to return to the hospital.
--- NOTE | 2023-09-07 09:03 | PM.OBTRLD ---
OB - Triage/Final Diagnosis Visit Information Comments/Additional reasons for admission: I have assessed the risk for this patient, Rosy Arboleda, and determined that she would benefit from observation care. Evaluation Laboratory results: Laboratory Tests 08/17/23 09:53 Antibody Screen Positive Antibody Identification Passive Due to RH Imm Glob Antigen Identification Not Reportable CHARITY, IgG Interpret Neg CHARITY, Poly Interpret Not Performed CHARITY, Complement Interp Negative KB Hemoglobin Negative Final Diagnosis (1) Status post fall: Code(s): Z91.81 - History of falling Status: Acute
== END 2023-08-17 11:30 | disposition home or self-care (01) ==
PROVIDERS: Admitting Provider Obstetrics & Gynecology; PCP Family Medicine; Visit Provider Obstetrics & Gynecology
DX: Z04.3 Encounter for examination and observation following other accident (principal); O26.892 Other specified pregnancy related conditions, second trimester; W19.XXXA Unspecified fall, initial encounter; Z3A.21 21 weeks gestation of pregnancy
CPT/HCPCS: 36415; 76815; 85460; 86850; 86880; 86902; G0378; G0379

== ENCOUNTER 2023-09-16 07:48 | Outpatient (RCR) | payer OTHER, SELFPAY ==
[2023-09-16 09:23] LABS: Basophils Percent Auto 0.3 % (0.2-1.2); Eosinophils Absolute Auto 0.1 K/mm3 (0-0.3); Eosinophils Percent Auto 0.5 % (0-4.4); Hematocrit 37.8 % (37.0-47.0); Hemoglobin 13.1 g/dL (12.0-15.0); Immature Granulocyte Absolute 0.11 K/mm3 (0.00-0.031); Lymphocytes Absolute Auto 1.21 K/mm3 (0.9-3.2); Mean Corpuscular HGB Conc 34.7 g/dl (32-36); Mean Corpuscular Hemoglobin 30.8 pg (26-34); Mean Corpuscular Volume 88.9 fl (80-100); Mean Platelet Volume 11.2 fl (7.4-10.4); Monocytes Absolute Auto 0.5 K/mm3 (0.1-0.6); Monocytes Percent Auto 4.1 % (2.6-8.5); Neutrophils Absolute Auto 9.2 K/mm3 (1.3-6.7); Neutrophils Percent Auto 83.1 % (45.5-73.1); Platelet Count Result 172 k/mm3 (150-375); Red Blood Count 4.25 M/mm3 (4.2-5.4); Red Cell Distribution Width 13.2 % (11.5-14.5)
[2023-09-16 09:32] LABS: Glucose 1 Hour PP 50gm Dose 107 mg/dL
[2023-09-18] MEDS: RHO(D) IMMUNE GLOBULIN 300 MCG/2 ML SYRINGE IM (17:47)
== END 2023-12-15 23:59 | disposition home or self-care (01) ==
LOC: ANHLAB 07:48
PROVIDERS: PCP Family Medicine; Visit Provider Obstetrics & Gynecology
DX: Z29.13 Encounter for prophylactic Rho(D) immune globulin (principal); O36.0190 Maternal care for anti-D [Rh] antibodies, unspecified trimester, not applicable or unspecified; Z3A.00 Weeks of gestation of pregnancy not specified
CPT/HCPCS: 36415; 82947; 85025; 85461; 86850; 86900; 86901; 90384; 96372; J2790

== ENCOUNTER 2023-10-28 13:54 | Outpatient (CLI) | payer OTHER, SELFPAY ==
[2023-10-28 14:18] LABS: Basophils Percent Auto 0.3 % (0.2-1.2); Eosinophils Absolute Auto 0.1 K/mm3 (0-0.3); Eosinophils Percent Auto 0.4 % (0-4.4); Hematocrit 37.9 % (37.0-47.0); Hemoglobin 13.3 g/dL (12.0-15.0); Immature Granulocyte Absolute 0.17 K/mm3 (0.00-0.031); Immature Granulocyte Percent A 1.4 % (0-0.5); Lymphocytes Absolute Auto 1.54 K/mm3 (0.9-3.2); Lymphocytes Percent Auto 12.4 % (18.3-44.2); Mean Corpuscular HGB Conc 35.1 g/dl (32-36); Mean Corpuscular Hemoglobin 31.4 pg (26-34); Mean Corpuscular Volume 89.6 fl (80-100); Monocytes Absolute Auto 0.6 K/mm3 (0.1-0.6); Monocytes Percent Auto 4.6 % (2.6-8.5); Neutrophils Percent Auto 80.9 % (45.5-73.1); Platelet Count Result 174 k/mm3 (150-375); Red Blood Count 4.23 M/mm3 (4.2-5.4); Red Cell Distribution Width 13.1 % (11.5-14.5); White Blood Count 12.4 K/mm3 (4.5-10.0)
[2023-10-28 15:01] LABS: HIV 1/2 Ab P24 Ag Result Negative (Negative)
[2023-10-28 18:14] LABS: Rapid Plasma Reagin Non-Reactive (NonReactive)
== END 2023-10-28 13:55 | disposition home or self-care (01) ==
LOC: ANHLAB 13:56
PROVIDERS: PCP Family Medicine; Visit Provider Nurse Practitioner Family
DX: Z34.90 Encounter for supervision of normal pregnancy, unspecified, unspecified trimester (principal); Z3A.00 Weeks of gestation of pregnancy not specified
CPT/HCPCS: 36415; 85025; 86592; 86703; G0432

== ENCOUNTER 2023-11-08 19:20 | Outpatient (CLI) | payer OTHER, SELFPAY ==
[2023-11-08 19:38] VITALS: BP 115/81; PULSE 89
[2023-11-08 19:45] VITALS: BP 113/74; PULSE 92
[2023-11-08 20:00] VITALS: BP 108/67; PULSE 91
[2023-11-08 20:15] VITALS: BP 106/75; PULSE 94
== END 2023-11-08 20:30 | disposition home or self-care (01) ==
LOC: ANHOBOP 19:24 → ANHLDR 19:30
PROVIDERS: PCP Family Medicine; Visit Provider Obstetrics & Gynecology
DX: O36.8930 Maternal care for other specified fetal problems, third trimester, not applicable or unspecified (principal); Z3A.00 Weeks of gestation of pregnancy not specified
CPT/HCPCS: 59025; 99199

== ENCOUNTER 2023-11-25 12:42 | Outpatient (CLI) | payer OTHER, SELFPAY ==
[2023-11-25 13:22] VITALS: BP 110/72; PULSE 104
[2023-11-25 13:42] VITALS: BP 110/72; PULSE 108
--- NOTE | 2023-11-25 13:46 | LDADM ---
This patient, Rosy Arboleda, was admitted to Labor/Delivery/Recovery 120 on at 12:42. Plans for labor, pain management and were discussed with patient. Patient/family oriented to hospital policies and general routines including ID bracelet, bed and alarms, visiting hours, pain management, procedures, bathroom and other care routines, personal items, smoking policy, room service/diet and guest tray routines, infant security routines, and visiting hours. Patient/Family are encouraged to report perceived risks to care and to ask questions if they do not understand what they are told or what they should do. See OBIX for further documentation.
[2023-11-25 13:59] VITALS: BP 110/72; PULSE 108
== END 2023-11-25 13:59 ==
LOC: ANHOBOP 13:23 → ANHLDR 13:23
PROVIDERS: PCP Family Medicine; Visit Provider Obstetrics & Gynecology
DX: O42.90 Premature rupture of membranes, unspecified as to length of time between rupture and onset of labor, unspecified weeks of gestation (principal); Z3A.00 Weeks of gestation of pregnancy not specified
CPT/HCPCS: 59025; 99199

== ENCOUNTER 2023-12-18 22:39 | Observation (INO) | payer OTHER, SELFPAY ==
[2023-12-18 22:54] VITALS: BP 116/81; PULSE 84
[2023-12-18 23:01] VITALS: BP 110/76; PULSE 92
[2023-12-18 23:16] VITALS: BP 119/78; PULSE 94
[2023-12-18 23:31] VITALS: BP 111/79; PULSE 92
[2023-12-18 23:46] VITALS: BP 108/75; PULSE 91
[2023-12-19] VITALS: BP 106/82; PULSE 91
[2023-12-19 00:16] VITALS: BP 109/80; PULSE 87
[2023-12-19 00:30] VITALS: BP 118/86; PULSE 93
--- NOTE | 2023-12-19 00:48 | PC.NURSE ---
Discharge instructions explained to pt, pt stated understanding, all questions and concerns answered. Pt ambulated out of department undelivered in stable condition with all belongings. S.O at pt side.
--- NOTE | 2024-01-17 20:11 | PM.OBTRLD ---
OB - Triage/Final Diagnosis Visit Information Comments/Additional reasons for admission: I have assessed the risk for this patient, Rosy Arboleda, and determined that she would benefit from observation care. Final Diagnosis (1) False labor: Code(s): O47.9 - False labor, unspecified Status: Acute
== END 2023-12-19 00:48 | disposition home or self-care (01) ==
PROVIDERS: Admitting Provider Obstetrics & Gynecology; PCP Family Medicine; Visit Provider Obstetrics & Gynecology
DX: O47.9 False labor, unspecified (principal); Z3A.00 Weeks of gestation of pregnancy not specified
CPT/HCPCS: G0378; G0379

== ENCOUNTER 2023-12-23 11:26 | Outpatient (CLI) | payer OTHER, SELFPAY ==
[2023-12-23 11:59] LABS: Hematocrit 38.9 % (37.0-47.0); Hemoglobin 13.8 g/dL (12.0-15.0); Mean Corpuscular HGB Conc 35.5 g/dl (32-36); Mean Corpuscular Hemoglobin 31.7 pg (26-34); Mean Corpuscular Volume 89.4 fl (80-100); Mean Platelet Volume 11.4 fl (7.4-10.4); Platelet Count Result 171 k/mm3 (150-375); Red Blood Count 4.35 M/mm3 (4.2-5.4); Red Cell Distribution Width 13.4 % (11.5-14.5); White Blood Count 11.1 K/mm3 (4.5-10.0)
[2023-12-23 12:55] LABS: HIV 1/2 Ab P24 Ag Result Negative (Negative)
[2023-12-24 07:38] LABS: Rapid Plasma Reagin Non-Reactive (NonReactive)
== END 2023-12-23 11:27 | disposition home or self-care (01) ==
LOC: ANHLAB 11:28
PROVIDERS: PCP Family Medicine; Visit Provider Obstetrics & Gynecology
DX: Z01.812 Encounter for preprocedural laboratory examination (principal)
CPT/HCPCS: 36415; 85027; 86592; 86703; 86850; 86900; 86901; G0432

== ENCOUNTER 2023-12-24 09:55 | Inpatient (IN) | payer OTHER, SELFPAY ==
[2023-12-24] VITALS (57 sets, daily range): BP systolic 84–125; BP diastolic 49–96; PULSE 59–165; RESP 11–20; TEMP 36.3–36.4; O2SAT 98–100; BMI 32.8
--- NOTE | 2023-12-24 08:24 | WPDANESEPP ---
Anes - Eval Pre Procedure Procedure: Operation Date: 12/24/23 12:00 Proposed Procedures p Repeat Section - Lazaro Recinos MD Date/Time: 12/24/23 08:24 Preop Diagnosis: Previous c section Pre Op Diagnosis: C Section Patient Data Age: 33 Gender: F Height: Weight: Allergies Allergy/AdvReac Type Severity Reaction Status Date / Time No Known Allergies Allergy Verified 12/24/23 10:31 Home Medications Medication Instructions Recorded Confirmed Type prenat.vits,kaleigh,[id number] 1 tablet PO DAILY #30 tabs 05/22/20 12/20/23 Rx cholecalciferol (vitamin D3) 50 50 mcg PO DAILY 12/22/22 12/20/23 History mcg (2,000 unit) capsule Patient hx anesthesia problems: none Family hx anesthesia problems: none Results Review: All pre-operative results and documents have been reviewed as part of the pre-operative evaluation. [facility] Past Medical History Medical History Anxiety Contact dermatitis History of COVID-19 POTS (postural orthostatic tachycardia syndrome) Recent surgical procedure on lower extremity varicose vein surgery Spontaneous miscarriage 05/2022 Varicose vein of leg Surgical History Surgical History deliv NOS-unsp x2 Family History Family History Grandparent Family history of malignant neoplasm of breast in first degree relative Family history of hypercholesterolemia Hypertension Grandparent Hypertension Grandparent Heart problem Father No problems noted. Mother SVT (supraventricular tachycardia) Sibling No problems noted. Social History Social History Smoking status: Never smoker Second hand tobacco smoke exposure: No Alcohol intake: current Alcohol use details: Social Substance use: never Substance use type: does not use Do You Feel Safe in your Home?: Yes Lack of Transportation: No Lack of Food: Never True Current Housing: I Have Housing Concerned About Future Housing: No Difficulty Paying Gas/Electric Bills: No Difficulty Paying for Meds: No Currently Unemployed: No Education: Associate Degree Difficulty w/ Childcare or Family Care: No Living arrangements: with family Occupation/Education: occupation Additional occupation/education comments: 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 Gender identity (if verbalized by the patient): Female Sexual Orientation (if Verbalized by the Patient): Straight or Heterosexual Spiritual care concerns: No Exam Day of Procedure 12/24/23 08:24 Patient weight: obese Heart: regular rate and rhythm Lungs: clear to auscultation Airway: Mallampati scale class II Neurological: alert and oriented
[2023-12-24] MEDS: ACETAMINOPHEN 500 MG TABLET 1000 MG PO (10:18)
--- NOTE | 2023-12-24 10:34 | LDADM ---
This patient, Rosy Arboleda, was admitted to Labor/Delivery/Recovery 120 on 12/24/23 at 09:55. Plans for labor, pain management and were discussed with patient. Patient/family oriented to hospital policies and general routines including ID bracelet, bed and alarms, visiting hours, pain management, procedures, bathroom and other care routines, personal items, smoking policy, room service/diet and guest tray routines, infant security routines, and visiting hours. Patient/Family are encouraged to report perceived risks to care and to ask questions if they do not understand what they are told or what they should do. See OBIX for further documentation.
[2023-12-24] MEDS: LACTATED RINGERS 1,000 ML 125 ML IV CONT ×3 (11:08→13:00)
[2023-12-24] MEDS: FAMOTIDINE 20 MG/2 ML VIAL IV PUSH (11:52)
[2023-12-24] MEDS: ONDANSETRON INJ 4 MG/2 ML VIAL IV PUSH ×2 (11:52→16:54)
--- NOTE | 2023-12-24 12:03 | P.HP_ITS ---
H&P: HPI History of Present Illness Date/Time: 12/24/23 12:03 Chief Complaint: Elective repeat section Narrative: Patient is a 33-year-old at 39 weeks with an EDC of 12/26/2023. she is here for scheduled elective repeat section. She has had 2 prior C- sections. PNC significant for 2 prior C-sections plan repeat at 39-40 weeks Vanishing twin of mono mono twin gestation. TRAP sequence- Resolved now Acardiac twin. echo at 24 weeks. Growth ultrasounds every 3-4 weeks and 3rd trimester. testing Has been reassuring. History of anxiety-stable she does have a counselor. She has been informed of risks benefits of section and risk trial of labor. She has opted for repeat section. Questions answered. Review of Systems Review of Systems: All systems reviewed & are unremarkable except as noted in HPI and below Cardiovascular: Cardiovascular: Reports no additional cardiovascular complaints, Denies chest pain and Denies dyspnea Respiratory: Respiratory: Reports no additional respiratory complaints and Denies dyspnea Gastrointestinal: Gastrointestinal: Reports abdominal pain, Denies change in bowel habits, Denies diarrhea, Denies nausea and Denies vomiting Genitourinary: Genitourinary: Reports pelvic pain Musculoskeletal: Musculoskeletal: Reports back pain Integumentary/Breasts: Skin/Breast: Reports system reviewed and no additional complaints, except as docu Neurologic: Reports system reviewed and no additional complaints, except as documented PMFSH Past Medical History Medical History Anxiety Contact dermatitis History of COVID-19 POTS (postural orthostatic tachycardia syndrome) Recent surgical procedure on lower extremity varicose vein surgery Spontaneous miscarriage 05/2022 Varicose vein of leg Surgical History Surgical History deliv NOS-unsp x2 Family History Family History Grandparent Family history of malignant neoplasm of breast in first degree rel ative Family history of hypercholesterolemia Hypertension Grandparent Hypertension Grandparent Heart problem Father No problems noted. Mother SVT (supraventricular tachycardia) Sibling No problems noted. Social History Social History Smoking status: Never smoker Second hand tobacco smoke exposure: No Alcohol intake: current Alcohol use details: Social Substance use: never Substance use type: does not use Do You Feel Safe in your Home?: Yes Lack of Transportation: No Lack of Food: Never True Current Housing: I Have Housing Concerned About Future Housing: No Difficulty Paying Gas/Electric Bills: No Difficulty Paying for Meds: No Currently Unemployed: No Education: Associate Degree Difficulty w/ Childcare or Family Care: No Living arrangements: with family Occupation/Education: occupation Additional occupation/education comments: 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 Gender identity (if verbalized by the patient): Female Sexual Orientation (if Verbalized by the Patient): Straight or Heterosexual Spiritual care concerns: No Meds Home Medications and Allergies Home Medications Medication Instructions Recorded Confirmed Type prenat.vits,kaleigh,[id number] 1 tablet PO DAILY #30 tabs 05/22/20 12/20/23 Rx cholecalciferol (vitamin D3) 50 50 mcg PO DAILY 12/22/22 12/20/23 History mcg (2,000 unit) capsule Allergies Allergy/AdvReac Type Severity Reaction Status Date / Time No Known Allergies Allergy Verified 12/24/23 10:31 Vital Signs Vital Signs - 24 hr 12/24/23 10:33 12/24/23 10:17 Pulse Rate 85 Blood Pressure 125/86 Oxygen Delivery Room Air Exam Const: Orientation/consciousness: oriented to person and oriented to place HENMT: Head: normal to inspection Eyes: General: appearance normal, both eyes and all related structures Resp: Effort & Inspection: normal respiratory effort Auscultation: clear to auscultation bilaterally Cardio: Rate: regular rate Rhythm: regular rhythm GI: Inspection: normal to inspection GI Palp: No Rebound tenderness present Neuro: General: oriented to person and oriented to place Cognition (Neuro): normal cognition Extrem: General: normal to inspection Psych: Appearance: grossly normal and well kempt Assessment and Plan Assessment and plan (1) Previous section: Code(s): Z98.891 - History of uterine scar from previous surgery Status: Acute Assessment and Plan: 1. Admit 2. Will proceed with repeat section.
--- NOTE | 2023-12-24 12:03 | WPDHPUPDATE1 ---
History and Physical Update Update Date/Time: 12/24/23 12:03 History and Physical has been reviewed, including an updated exam of the patient. There are NO changes in the patient's condition. Risks, benefits, and alternatives have been discussed and questions answered. Patient agrees to proceed with procedure.
[2023-12-24] MEDS: ceFAZolin 2 GM/D5W 50 ML 2 GM/50 ML BAG IVPB (12:16)
--- NOTE | 2023-12-24 14:08 | P.OP_ITS ---
Procedure Note - Detailed Date of Procedure 12/24/23 Pre-op Diagnosis C Section Post-op Diagnosis Same Procedure Performed Repeat low transverse section Surgeon Lazaro Recinos MD Production Material Handler Kerrie Anesthesia Spinal Indications Elective repeat section Findings Male infant, thin lower uterine segment, extensive adhesions of bladder to mid uterus, thin serosa at bladder dome, intact but thin, small amount of methylene blue seen at area, surrounding tissue approximated with several layers with 3.0 vicryl. Description of Procedure After informed consent, risks and benefits of the procedure was discussed with the patient. The patient was taken to the operating room. The spinal anesthesia was placed and found to be adequate. She was placed in dorsal position with left tilt. She was then prepped and draped in the usual sterile fashion. She was then prepped and draped in the usual sterile fashion. A Pfannenstiel skin incision was made with a scalpel and carried through to the underlying layer of fascia. The fascia was then nicked in the midline, extending bilaterally. The fascia was dissected off the rectus muscles bluntly and sharply, superiorly and inferiorly. The rectus muscles were in the midline, and peritoneum was identified and entered bluntly. The pelvic organs were visualized. The bladder blade was then inserted. The vesicouterine peritoneum was identified. The bladder was scarred to mid uterus. Adhesions were dissected to the lower uterus. The lower uterine segment was noted to be very this. No window. A low transverse incision was made with the scalpel, the amniotic cavity was entered, clear fluid noted. The incision was extended bilaterally with index fingers in a crescent-shaped fashion. The head was delivered and the rest of the infant was delivered. The infant was vigorously crying. The nose and mouth suctioned. The cord was clamped twice and cut. The was then handed off to the awaiting pediatric staff. Cord blood and segment obtained. The placenta was then delivered manually. The uterine cavity was sponge curetted. The uterus was then exteriorized. The uterine incision was then closed with 0 vicryl in a running locked fashion. Several figure of eight of 0 vicryl suture was used at the incision for hemostasis. Hemostasis noted. A second layer of 0 vicryl was used in interrupted figure of eight. Hemostasis noted. Posterior cul de sac cleared of debris. Irrigated. The uterus was then returned to the abdomen. Bilateral gutters were cleared off all clots and debris. The uterine incision was noted to be hemostatic. There was an area near bladder reflection that appeared this. Bulb not come through area. Serosa intact. Bladder was filled with Methylene blue and small blue noted at area. 3.0 vicryl was used to approximate the surrounding tissue over area, with two layers. No blue saline noted .Interceed placed on uterine incision and vertically on front of uterus. The muscle bellies were inspected and noted to be hemostatic. The subfascial layer was noted to be hemostatic, and the fascia was closed with 0 Vicryl in a running fashion. The subcutaneous layer was then irrigated and approximated with 3-0 Vicryl. The skin was closed with initially on the right with Ensorb. Then had to use regular sujatha for skin closure. The regular sujatha had better approximation. Dressing applied. All instruments, needle, and lap counts were correct x3. The patient was taken to the recovery room in stable condition. Estimated Blood Loss 490 Drains No Packing No Pathology Yes (placenta and cord, no tissue identified with placenta) Complications No immediate complications Condition Stable Disposition Floor [facility] Billing Surgery - Charge Forward: Surgery Billing
--- NOTE | 2023-12-24 14:54 | PC.NURSE ---
heart tones obtained in OR after spinal placement. FHT 155 at 1226. Proceeded to prep patient in a routine fashion.
[2023-12-24] MEDS: OXYTOCIN 30 UNITS/NS 500 ML 30 UNITS/500 ML BAG 125 UNITS IV CONT (15:21)
[2023-12-24] MEDS: LIDOCAINE 5% PATCH 1 PATCH TRANSDERM (15:21)
--- NOTE | 2023-12-24 16:27 | PC.NURSE ---
Patient transferred to post room #282 via stretcher. Support person present. Oriented to unit, room, information board, rooming in, admission packet and security measures. Patient verbalizes understanding.
[2023-12-24] MEDS: ACETAMINOPHEN 325 MG TABLET 650 MG PO ×2 (16:54→22:48)
[2023-12-24] MEDS: SIMETHICONE 80 MG TAB.CHEW PO (16:55)
--- NOTE | 2023-12-24 16:55 | P.PCNOB_ITS ---
OB - Delivery Note Procedure Delivery date: 12/24/23 Pre-op diagnosis: Previous Delivery Post-op Diagnosis: Same Delivery monitor: External FHT Prior to decision for section, ACOG/SMFM labor guidelines were consider ed and discussed with the patient and staff. Decision made to proceed with the section.: Yes Procedure Performed: Repeat Surgeon: Lazaro Recinos MD Anesthesia type: Spinal Description of Procedure/Findings: Male There was a thin lower uterine segment, extensive adhesions of bladder to mid uterus, thin serosa at bladder dome, intact but thin, small amount of methylene blue seen at area, surrounding tissue approximated with several layers with 3.0 vicryl. Description of Procedure After informed consent, risks and benefits of the procedure was discussed with the patient. The patient was taken to the operating room. The spinal anesthesia was placed and found to be adequate. She was placed in dorsal position with left tilt. She was then prepped and draped in the usual sterile fashion. She was then prepped and draped in the usual sterile fashion. A Pfannenstiel skin incision was made with a scalpel and carried through to the underlying layer of fascia. The fascia was then nicked in the midline, extending bilaterally. The fascia was dissected off the rectus muscles bluntly and sharply, superiorly and inferiorly. The rectus muscles were in the midline, and peritoneum was identified and entered bluntly. The pelvic organs were visualized. The bladder blade was then inserted. The vesicouterine peritoneum was identified. The bladder was scarred to mid uterus. Adhesions were dissected to the lower uterus. The lower uterine segment was noted to be very this. No window. A low transverse incision was made with the scalpel, the amniotic cavity was entered, clear fluid noted. The incision was extended bilaterally with index fingers in a crescent-shaped fashion. The head was delivered and the rest of the was delivered. The was vigorously crying. The nose and mouth suctioned. The cord was clamped twice and cut. The infant was then handed off to the awaiting pediatric staff. Cord blood and segment obtained. The placenta was then delivered manually. The uterine cavity was sponge curetted. The uterus was then exteriorized. The uterine incision was then closed with 0 vicryl in a running locked fashion. Several figure of eight of 0 vicryl suture was used at the incision for hemostasis. Hemostasis noted. A second layer of 0 vicryl was used in interrupted figure of eight. Hemostasis noted. Posterior cul de sac cleared of debris. Irrigated. The uterus was then returned to the abdomen. Bilateral gutters were cleared off all clots and debris. The uterine incision was noted to be hemostatic. There was an area near bladder reflection that appeared this. Bulb not come through area. Serosa intact. Bladder was filled with Methylene blue and small blue noted at area. 3.0 vicryl was used to approximate the surrounding tissue over area, with two layers. No blue saline noted .Interceed placed on uterine incision and vertically on front of uterus. The muscle bellies were inspected and noted to be hemostatic. The subfascial layer was noted to be hemostatic, and the fascia was closed with 0 Vicryl in a running fashion. The subcutaneous layer was then irrigated and approximated with 3-0 Vicryl. The skin was closed with initially on the right with Ensorb. Then had to use regular sujatha for skin closure. The regular sujatha had better approximation. Dressing applied. All instruments, needle, and lap counts were correct x3. The patient was taken to the recovery room in stable condition. Drains: No Packing: No Pathology: Yes Complications: No immediate complications Condition: Stable Disposition: Floor [facility] Baby Infant gender: Male presentation: vertex
[2023-12-24] MEDS: HYDROcodone/acetaminophen (*CRX) 5-325 MG TABLET 1 TAB PO (19:33)
[2023-12-24] MEDS: KCL 20 MEQ/D5/0.45% SOD CHL 1,000 ML 125 ML IV CONT (20:15)
[2023-12-24] MEDS: IBUPROFEN 600 MG TABLET PO ×2 (22:48)
[2023-12-25 04:15] VITALS: BP 93/62; PULSE 74; RESP 16; TEMP 36.9; O2SAT 99
[2023-12-25 04:30] VITALS: BP 114/76; PULSE 72
[2023-12-25] MEDS: ACETAMINOPHEN 325 MG TABLET 650 MG PO ×4 (04:32→22:30)
[2023-12-25] MEDS: IBUPROFEN 600 MG TABLET PO ×4 (04:33→22:30)
[2023-12-25 05:36] LABS: Basophils Percent Auto 0.3 % (0.2-1.2); Eosinophils Absolute Auto 0.1 K/mm3 (0-0.3); Eosinophils Percent Auto 0.6 % (0-4.4); Hematocrit 29.1 % (37.0-47.0); Hemoglobin 10.3 g/dL (12.0-15.0); Immature Granulocyte Absolute 0.07 K/mm3 (0.00-0.031); Immature Granulocyte Percent A 0.7 % (0-0.5); Immature Platelet Fraction Pct 7.7 % (0.9-11.2); Lymphocytes Absolute Auto 1.11 K/mm3 (0.9-3.2); Lymphocytes Percent Auto 10.9 % (18.3-44.2); Mean Corpuscular HGB Conc 35.4 g/dl (32-36); Mean Corpuscular Hemoglobin 32.1 pg (26-34); Mean Corpuscular Volume 90.7 fl (80-100); Mean Platelet Volume 11.6 fl (7.4-10.4); Monocytes Absolute Auto 0.8 K/mm3 (0.1-0.6); Monocytes Percent Auto 7.6 % (2.6-8.5); Neutrophils Absolute Auto 8.2 K/mm3 (1.3-6.7); Neutrophils Percent Auto 79.9 % (45.5-73.1); Platelet Count Result 122 k/mm3 (150-375); Red Blood Count 3.21 M/mm3 (4.2-5.4); Red Cell Distribution Width 13.5 % (11.5-14.5); White Blood Count 10.2 K/mm3 (4.5-10.0)
--- NOTE | 2023-12-25 08:00 | WPDANLDPN2 ---
Anes-Prog Note L&D Date/Time: 12/25/23 08:00 Comfortable throughout: section Neuraxial method: spinal Epidural/Spinal procedure site: clean & non-tender Neuro status: Neuro function grossly intact. Cardiovascular status: normal Respiratory status: normal Airway patency: baseline Mental status: baseline Post-Op hydration status: normal Vital Signs: Last Vital Signs Temp 36.9 C 12/25/23 04:15 Pulse 72 12/25/23 04:30 Resp 16 12/25/23 04:15 BP 114/76 12/25/23 04:30 Pulse Ox 99 12/25/23 04:15 O2 Del Method Room Air 12/24/23 20:00 Pain score (VAS): 1 I/O: Intake & Output 12/24/23 12/25/23 12/25/23 23:59 07:59 15:59 Output Total 1750 1000 Balance -1750 -1000 Post-procedural complaints: none Patient feedback: Patient satisfied with anesthetic care.
--- NOTE | 2023-12-25 08:00 | WPDANLDNPN2 ---
Anes-Prog Note L&D-Neuraxial Date/Time: 12/25/23 08:00 Neuraxial medications: intrathecal PF morphine Opiod-related complaints: none Patient feedback: Patient satisfied with post-operative pain management.
[2023-12-25] MEDS: SIMETHICONE 80 MG TAB.CHEW PO ×3 (08:19→16:33)
[2023-12-25] MEDS: MULTIVIT/MIN/PREN/FOL AC/IRON TABLET 1 TAB PO (08:19)
[2023-12-25] MEDS: DOCUSATE SODIUM 100 MG CAPSULE PO ×2 (08:19→16:33)
[2023-12-25 08:25] VITALS: BP 103/70; PULSE 72; RESP 16; TEMP 36.3; O2SAT 100
[2023-12-25 12:29] VITALS: BP 105/63; PULSE 77; RESP 16; TEMP 36.1; O2SAT 100
--- NOTE | 2023-12-25 13:05 | P.PNOB_ITS ---
OB - PN: Subj Subjective Date/time seen: 12/25/23 13:05 Patient comments: pain well controlled, tolerating diet and other (no flatus, minimal lochia) baby status: doing well OB - PN: Obj Data Labs 12/25/23 04:29 Labs: Laboratory Results - last 24 hr 12/25/23 04:29 WBC 10.2 H RBC 3.21 L Hgb 10.3 L D Hct 29.1 L MCV 90.7 MCH 32.1 MCHC 35.4 RDW 13.5 Plt Count 122 L MPV 11.6 H Immature Gran % (Auto) 0.7 H Neut % (Auto) 79.9 H Lymph % (Auto) 10.9 L [place] % (Auto) 7.6 Eos % (Auto) 0.6 Baso % (Auto) 0.3 Lymph # (Auto) 1.11 [place] # (Auto) 0.8 H Eos # (Auto) 0.1 Baso # (Auto) 0.0 Abs Immat Gran (auto) 0.07 H Absolute Neuts (auto) 8.2 H Absolute Nucleated RBC 0.000 Nucleated RBC % 0.0 % Immature Plt Fraction 7.7 OB - PN A/P Assessment and Plan (1) delivery delivered: Code(s): O82 - Encounter for delivery without indication Status: Acute Assessment and Plan: POD1. Doing well. Routine post op care. Will continue Love cath for a week. Will start prophylactic antibiotic. Time Spent With Patient Time: Total time spent is greater than 50% in coordination of care (as documented) at patient's floor/unit and/or counseling patient: Exam Const: General: comfortable and no acute distress Resp: Effort & Inspection: normal respiratory effort Auscultation: clear to auscultation bilaterally GI: Other: incision intact, no drainage or erythema Neuro: General: oriented to person, oriented to place and oriented to time Extrem: General: normal to inspection and no calf tenderness Psych: Mental Status: mental status grossly normal
[2023-12-25] MEDS: LIDOCAINE 5% PATCH 1 PATCH TRANSDERM (17:26)
[2023-12-25 20:00] VITALS: BP 103/70; PULSE 83; RESP 16; TEMP 36.8; O2SAT 99
[2023-12-25] MEDS: CEPHALEXIN 500 MG CAPSULE PO (20:00)
[2023-12-25] MEDS: HYDROcodone/acetaminophen (*CRX) 5-325 MG TABLET 1 TAB PO (20:00)
[2023-12-26] MEDS: ACETAMINOPHEN 325 MG TABLET 650 MG PO ×2 (04:40→10:49)
[2023-12-26] MEDS: IBUPROFEN 600 MG TABLET PO ×2 (04:40→10:49)
[2023-12-26 07:25] VITALS: BP 102/68; PULSE 87; RESP 16; TEMP 36.4
[2023-12-26] MEDS: HYDROcodone/acetaminophen (*CRX) 5-325 MG TABLET 1 TAB PO (07:27)
[2023-12-26] MEDS: DOCUSATE SODIUM 100 MG CAPSULE PO (07:27)
[2023-12-26] MEDS: MULTIVIT/MIN/PREN/FOL AC/IRON TABLET 1 TAB PO (07:27)
[2023-12-26] MEDS: SIMETHICONE 80 MG TAB.CHEW PO (07:27)
[2023-12-26] MEDS: CEPHALEXIN 500 MG CAPSULE PO (07:27)
--- NOTE | 2023-12-26 09:07 | PC.NURSE ---
Introductions were made, then consulted with patient to assess needs related to . Mother led the conversation with her?plans to feed?her and the?experience so far. Mother plans to exlusively breastfeed . Mother has breastfed 3 other children and is confident with nursing . No questions at this time. Instructed to call if infant does not latch, or if there is discomfort with . Resources used for education were facilitated with the new patient folder, feeding sheet and name written on the communication board. Mother is feeding appropriately for growth of and understands stimulating infant to eat if needed. has had appropriate feedings in the last 24 hours meets the outcomes for weight, output, blood sugar and jaundice at this time. Reinforced understanding of milk production, transition of milk, signs of adequate intake, transition of stool, prevention/relief of engorgement, plugged ducts, mastitis, responsive watching for feeding cues, the different methods of stimulating to breastfeed 1-3 hours after the start of the last feeding. Parents voiced understanding of information, demonstrated learning and will call if there is a request for assistance. Reported to the Primary RN.
--- NOTE | 2023-12-26 09:15 | PM.OBPNVD ---
OB - PN: Subj Subjective Date/time seen: 12/26/23 09:15 Narrative: POD#2 Rosy reports doing well today. 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 Her pain is controlled. She is tolerating regular diet, passing gas, and ambulating without issues. Love/leg bag in place w/o issue. She denies any issues with her incision. She is breast feeding. She would like to go home today. OB - PN: Obj Data Labs 12/25/23 04:29 OB - PN A/P Assessment and Plan (1) deliv NOS-unsp: Status: Acute (2) Bladder injury, closed: Qualifiers: Encounter type: initial encounter Qualified Code(s): S37.20XA - Unspecified injury of bladder, initial encounter Code(s): S37.20XA - Unspecified injury of bladder, initial encounter Status: Acute Plan day: 2 Plan: routine care and discharge home Comments: - PO pain meds - Regular diet - Ambulation and hydration encouraged - Continue putting baby to breast q2-3hr - Will continue Love cath for a week. Will start prophylactic antibiotic. - Pelvic rest; take meds as prescribed - ER return precautions: fever, n/v/abd pain, bleeding, HTN Time Spent With Patient Time: Total time spent is greater than 50% in coordination of care (as documented) at patient's floor/unit and/or counseling patient: Review of Systems Constitutional: Constitutional: Denies chills, Denies fever(s) and Denies headache(s) Eyes: Eyes: Denies change in vision ENT: Denies dizziness and Denies headache(s) Cardiovascular: Cardiovascular: Denies chest pain, Denies palpitations and Denies dyspnea Respiratory: Respiratory: Denies cough and Denies dyspnea Gastrointestinal: Gastrointestinal: Denies nausea and Denies vomiting Genitourinary: Comments: normal bleeding Neurologic: Denies dizziness and Denies headache(s) Endocrine: Endocrine: Denies palpitations Exam Const: General: cooperative, comfortable and no acute distress Nutritional Appearance: obese Orientation/consciousness: patient oriented x3 Resp: Effort & Inspection: normal respiratory effort Auscultation: clear to auscultation bilaterally Cardio: Rate: regular rate GI: Inspection: non-distended and incision (covered with clean dressing) GI Palp: Yes abdominal tenderness (appropriate) and Yes Soft to palpation Auscultation: normal bowel sounds : Other: fundus firm Urinary Catheter: Urinary Catheter: patent and draining and urine clear Skin: General skin exam: normal color Neuro: General: patient oriented x3 Extrem: General: normal to inspection Psych: Appearance: grossly normal Affect: normal affect Attitude: cooperative
--- NOTE | 2023-12-26 10:46 | P.DS_ITS ---
DS: Admitting Diagnosis Discharge Date 12/26/23 <Luisa Vela MD - Last Filed: 12/26/23 10:46> Admitting Diagnosis Elective repeat <Lazaro Recinos MD - Last Filed: 12/25/23 13:20> DS: Discharge Diagnosis Discharge Diagnosis (1) delivery delivered: Code(s): O82 - Encounter for delivery without indication <Lazaro Recinos MD - Last Filed: 12/25/23 13:20> Status: Acute <Lazaro Recinos MD - Last Filed: 12/25/23 13:20> (2) Bladder injury, closed: Qualifiers: Encounter type: initial encounter Qualified Code(s): S37.20XA - Unspecified injury of bladder, initial encounter <Lazaro Recinos MD - Last Filed: 12/25/23 13:20> Code(s): S37.20XA - Unspecified injury of bladder, initial encounter <Lazaro Recinos MD - Last Filed: 12/25/23 13:20> Status: Acute <Lazaro Recinos MD - Last Filed: 12/25/23 13:20> OB - DS: Summary Hospital Course Hospital Course: She was admitted for elective repeat section. No residual tissue of the acardiac twin identified at delivery. Love was remained indwelling due repair of thin are over bladder. She was started on prophylactic antibiotic. Post operatively she did well. On post op day 1 she was tolerating regular diet. Minimal lochia. <Lazaro Recinos MD - Last Filed: 12/25/23 13:20> OB Procedures : NST <Lazaro Recinos MD - Last Filed: 12/25/23 13:20> OB Procedures Intrapartum: <Lazaro Recinos MD - Last Filed: 12/25/23 13:20> OB Procedures: : Antibiotics (prophylactic) <Lazaro Recinos MD - Last Filed: 12/25/23 13:20> Peripartum Data Delivery Method: Section <Lazaro Recinos MD - Last Filed: 12/25/23 13:20> Procedures: Procedures Operation Date: 12/24/23 12:00 Actual Procedure Side Surgeon p Repeat Section Not Applicable Lazaro Recinos MD <Lazaro Recinos MD - Last Filed: 12/25/23 13:20> [place] 1: Gender: Male <Luisa Vela MD - Last Filed: 12/26/23 10:46> Disposition of : home <Luisa Vela MD - Last Filed: 12/26/23 10:46> Status at Discharge Functional status at discharge: independent ambulation <Luisa Vela MD - Last Filed: 12/26/23 10:46> Overall status at discharge: patient is back to baseline <Luisa Vela MD - Last Filed: 12/26/23 10:46> Time Spent with Patient Time attestation: Total time spent providing and/or coordinating discharge services: <Lazaro Recinos MD - Last Filed: 12/25/23 13:20> Time spent: Less than 30 minutes <Luisa Vela MD - Last Filed: 12/26/23 10:46> Exam Const: General: cooperative, healthy appearing, comfortable and no acute distress <Luisa Vela MD - Last Filed: 12/26/23 10:46> Orientation/consciousness: patient oriented x3 <Luisa Vela MD - Last Filed: 12/26/23 10:46> Resp: Effort & Inspection: normal respiratory effort <Luisa Vela MD - Last Filed: 12/26/23 10:46> Auscultation: clear to auscultation bilaterally <Luisa Vela MD - Last Filed: 12/26/23 10:46> Cardio: Rate: regular rate <Luisa Vela MD - Last Filed: 12/26/23 10:46> GI: Inspection: non-distended <Luisa Vela MD - Last Filed: 12/26/23 10:46> GI Palp: No abdominal tenderness and Yes Soft to palpation <Luisa Vela MD - Last Filed: 12/26/23 10:46> Auscultation: normal bowel sounds <Luisa Vela MD - Last Filed: 12/26/23 10:46> : Other: fundus firm <Luisa Vela MD - Last Filed: 12/26/23 10:46> Urinary Catheter: Urinary Catheter: patent and draining and urine clear <Luisa Vela MD - Last Filed: 12/26/23 10:46> Skin: General skin exam: normal color <Luisa Vela MD - Last Filed: 12/26/23 10:46> Neuro: General: patient oriented x3 <Luisa Vela MD - Last Filed: 12/26/23 10:46> Extrem: General: normal to inspection <Luisa Vela MD - Last Filed: 12/26/23 10:46> Psych: Appearance: grossly normal <Luisa Vela MD - Last Filed: 12/26/23 10:46> Affect: normal affect <Luisa Vela MD - Last Filed: 12/26/23 10:46> Attitude: cooperative <Luisa Vela MD - Last Filed: 12/26/23 10:46> DS: Data Data Completed and Pending Pending studies at discharge: Pending at discharge 12/24/23 14:38 Surgical [PTH] Routine <Lazaro Recinos MD - Last Filed: 12/25/23 13:20> Labs on day of discharge: Labs from last 24 hours 12/25/23 04:29 WBC 10.2 H RBC 3.21 L Hgb 10.3 L D Hct 29.1 L MCV 90.7 MCH 32.1 MCHC 35.4 RDW 13.5 Plt Count 122 L MPV 11.6 H Immature Gran % (Auto) 0.7 H Neut % (Auto) 79.9 H Lymph % (Auto) 10.9 L [place] % (Auto) 7.6 Eos % (Auto) 0.6 Baso % (Auto) 0.3 Lymph # (Auto) 1.11 [place] # (Auto) 0.8 H Eos # (Auto) 0.1 Baso # (Auto) 0.0 Abs Immat Gran (auto) 0.07 H Absolute Neuts (auto) 8.2 H Absolute Nucleated RBC 0.000 Nucleated RBC % 0.0 % Immature Plt Fraction 7.7 <Lazaro L. Jorje, MD - Last Filed: 12/25/23 13:20> Discharge Plan Discharge Attending physician on discharge: Lazaro Recinos <Lazaro Recinos MD - Last Filed: 12/25/23 13:20> Lazaro Recinos <Luisa Vela MD - Last Filed: 12/26/23 10:46> Consulting providers: Candelario Singh Jr. <Lazaro Recinos MD - Last Filed: 12/25/23 13:20> Discharging Clinician: Luisa Vela <Lazaro Recinos MD - Last Filed: 12/25/23 13:20> Luisa Vela <Luisa Vela MD - Last Filed: 12/26/23 10:46> Patient Disposition: Home, Self-Care <Lazaro Recinos MD - Last Filed: 12/25/23 13:20> Activity: may shower and pelvic rest <Lazaro Recinos MD - Last Filed: 12/25/23 13:20> may shower and pelvic rest <Luisa Vela MD - Last Filed: 12/26/23 10:46> Diet: regular <Lazaro Recinos MD - Last Filed: 12/25/23 13:20> regular <Luisa Vela MD - Last Filed: 12/26/23 10:46> Patient Instructions: Love Catheter Placement and Care (DC), (DC) <Lazaro Recinos MD - Last Filed: 12/25/23 13:20> Stand Alone Forms: General Discharge Information <Lazaro Recinos MD - Last Filed: 12/25/23 13:20> Follow-up/Referrals: Lazaro Recinos MD [Physician] - 1 Week <Lazaro Recinos MD - Last Filed: 12/25/23 13:20> Discharge Medications: New acetaminophen 325 mg Tablet 650 mg PO Q6H Qty: 60 0RF cephalexin 500 mg Capsule 500 mg PO Q12HR 7 Days Qty: 14 0RF docusate sodium 100 mg Capsule 100 mg PO BID Qty: 60 0RF hydrocodone-acetaminophen 5-325 mg Tablet 1 tablet PO Q3H PRN (Reason: Breakthrough Pain Rated 4-6) Qty: 20 0RF ibuprofen 600 mg Tablet 600 mg PO Q6H Qty: 40 0RF Continued prenat.vits,kaleigh,ogg-lypr-fmzyt Tablet 1 tablet PO DAILY Qty: 30 0RF cholecalciferol (vitamin D3) 50 mcg (2,000 unit) capsule 50 mcg PO DAILY <Lazaro Recinos MD - Last Filed: 12/25/23 13:20> Date of admission: 12/24/23 09:55 <Lazaro Recinos MD - Last Filed: 12/25/23 13:20> Primary Care Provider: Bloa Bhagat <Lazaro Recinos MD - Last Filed: 12/25/23 13:20> Admitting Provider: Lazaro Recinos <Lazaro Recinos MD - Last Filed: 12/25/23 13:20> Attending physician on admission: Lazaro Recinos <Lazaro Recinos MD - Last Filed: 12/25/23 13:20> Condition: Stable <Lazaro Recinos MD - Last Filed: 12/25/23 13:20>
[2023-12-28 10:19] VITALS: BP 125/78; PULSE 86; RESP 18; TEMP 36.7; O2SAT 100
== END 2023-12-26 12:40 | disposition home or self-care (01) | DRG 788 ==
LOC: ANHOB2 12-26 11:03 → ANHLDR 12-29 10:03
PROVIDERS: Admitting Provider Obstetrics & Gynecology; PCP Family Medicine; Visit Provider Obstetrics & Gynecology
PROC: 10D00Z1 Extraction of Products of Conception, Low, Open Approach (ICD-10-PCS; CPT 59514; principal; 2023-12-24 12:00)
DX: O34.211 Maternal care for low transverse scar from previous cesarean delivery (principal); O31.23X0 Continuing pregnancy after intrauterine death of one fetus or more, third trimester, not applicable or unspecified; Z37.0 Single live birth; Z3A.39 39 weeks gestation of pregnancy; O99.892 Other specified diseases and conditions complicating childbirth; N32.89 Other specified disorders of bladder; O99.344 Other mental disorders complicating childbirth; F41.9 Anxiety disorder, unspecified
CPT/HCPCS: 36415; 85025; 85055; 88307; A9270; J0690; J1885; J2274; J2371; J2405; J2590; J3480; J7120; Q9968

== ENCOUNTER 2023-12-30 03:59 | Outpatient (CLI) | payer OTHER, SELFPAY ==
[2023-12-30] VITALS (44 sets, daily range): BP systolic 130–147; BP diastolic 79–91; PULSE 69–93; O2SAT 97–100
[2023-12-30 04:46] LABS: Basophils Percent Auto 0.5 % (0.2-1.2); Eosinophils Absolute Auto 0.1 K/mm3 (0-0.3); Eosinophils Percent Auto 1.6 % (0-4.4); Hematocrit 30.1 % (37.0-47.0); Hemoglobin 10.5 g/dL (12.0-15.0); Immature Granulocyte Absolute 0.06 K/mm3 (0.00-0.031); Lymphocytes Absolute Auto 0.99 K/mm3 (0.9-3.2); Lymphocytes Percent Auto 17.3 % (18.3-44.2); Mean Corpuscular HGB Conc 34.9 g/dl (32-36); Mean Corpuscular Hemoglobin 31.5 pg (26-34); Mean Corpuscular Volume 90.4 fl (80-100); Mean Platelet Volume 10.2 fl (7.4-10.4); Monocytes Absolute Auto 0.4 K/mm3 (0.1-0.6); Monocytes Percent Auto 7.5 % (2.6-8.5); Neutrophils Absolute Auto 4.1 K/mm3 (1.3-6.7); Neutrophils Percent Auto 72.1 % (45.5-73.1); Platelet Count Result 177 k/mm3 (150-375); Red Blood Count 3.33 M/mm3 (4.2-5.4); Red Cell Distribution Width 12.8 % (11.5-14.5); White Blood Count 5.7 K/mm3 (4.5-10.0)
[2023-12-30 04:55] LABS: Potassium 3.7 mmol/L (3.4-5.0)
[2023-12-30 05:06] LABS: Alanine Aminotransferase 22 U/L (6-35); Albumin Level 3.2 g/dL (3.5-5.1); Alkaline Phosphatase 81 U/L (38-126); Anion Gap 6 mmol/L (4-12); Aspartate Amino Transferase 27 U/L (14-36); Bilirubin,Total 0.5 mg/dL (0.2-1.3); Blood Urea Nitrogen 13 mg/dL (7-17); Calcium 8.5 mg/dL (8.4-10.2); Carbon Dioxide 23 mmol/L (22-30); Chloride 107 mmol/L (98-107); Estimated Glomerular Filt Rate > 60; Glucose 112 mg/dL (65-110); Sodium 136 mmol/L (137-145); Uric Acid 6.2 mg/dL (2.5-7.5)
--- NOTE | 2023-12-30 05:44 | PC.NURSE ---
Called Dr. Lim, update on pt, labs, blood pressure, and headache. Orders received to administer hydrocodone 5-325 mg for a headache, labetalol 200 mg, and call Dr. Recinos at 0700 to get further medication orders.
[2023-12-30] MEDS: LABETALOL HCL 100 MG TABLET 200 MG PO (06:18)
--- NOTE | 2023-12-30 07:16 | PC.NURSE ---
0716: RN phoned Dr. Recinos no answer at this time.
--- NOTE | 2023-12-30 07:30 | PC.NURSE ---
0724: Dr. Recinos called back. RN informed her of patient's complaints of a dull headache and elevated blood pressures at home. RN reported patient's blood pressure, lab results, and that the information systems director Dr. Lim ordered 200 of Labetalol once at 0600 that patient had received. Orders to discharge patient home on [address] Recinos sees patient in the office tomorrow.
== END 2023-12-30 07:44 | disposition home or self-care (01) ==
LOC: ANHOUTPT 04:04 → ANHOBPP 04:11
PROVIDERS: Obstetrics & Gynecology; PCP Family Medicine; Visit Provider Obstetrics & Gynecology
DX: O13.9 Gestational [pregnancy-induced] hypertension without significant proteinuria, unspecified trimester (principal); Z3A.00 Weeks of gestation of pregnancy not specified
CPT/HCPCS: 36415; 80053; 84550; 85025; 99199; A9270

== ENCOUNTER 2023-12-31 13:19 | Outpatient (CLI) | payer OTHER, SELFPAY ==
--- NOTE | ~2023-12-31 | XR_ITS ---
EXAMINATION: XR cystogram DATE: 12/31/2023 13:48 INDICATION: Bladder injury. TECHNIQUE: Water-soluble contrast was gravity-infused through the patient's Love catheter. Multiple fluoroscopic images were obtained. Fluoroscopy exposure time was 0.2 minutes. The total number of arya ges was 7. COMPARISON: None. FINDINGS: There is no extraluminal leakage of contrast. No ureteral reflux. Skin sujatha are noted. IMPRESSION: 1. Normal cystogram. Reviewed, dictated and finalized at location A. ET ROLLER ENGINEER IMPRESSION: 1. Normal cystogram.
== END 2023-12-31 13:20 | disposition home or self-care (01) ==
PROVIDERS: PCP Family Medicine; Visit Provider Obstetrics & Gynecology
DX: Z43.5 Encounter for attention to cystostomy (principal)
CPT/HCPCS: 51600; 74430; Q9967